=== PATIENT | male | born 1945 | race American Indian/Alaskan Native ===

== ENCOUNTER 2019-03-01 02:09 | Inpatient (IN) | payer MEDICARE, OTHER ==
[2019-03-01] VITALS (12 sets, daily range): BP systolic 116–166; BP diastolic 62–97
[~2019-03-01] VITALS: Ht 180.3 cm; Wt 179.8 kg
[2019-03-01] MEDS ORDERED: normal saline 1000ml 1,000 ML IV ONE ×2 (02:11→09:26)
[2019-03-01] MEDS ORDERED: ipratropium/albuterol 3ml nebule NEB ONE ×2 (02:15→03:15)
[2019-03-01 02:32] LABS: BASOPHILS % (AUTO) 0.1 % (0-1); EOSINOPHILS % (AUTO) 0.3 % (0-6); HEMOGLOBIN 14.2 g/dl (14.0-17.9); LYMPHOCYTES # (AUTO) 0.2 X10'3 (1.1-4.8); LYMPHOCYTES % (AUTO) 2.7 % (21-51); MEAN CORPUSCULAR HEMOGLOBIN 31.9 PG (27.0-31.0); MEAN CORPUSCULAR HGB CONC 32.4 g/dL (33.0-36.5); MEAN CORPUSCULAR VOLUME 98.3 FL (78-98); MEAN PLATELET VOLUME 7.9 FL (7.4-10.4); MONOCYTES # (AUTO) 0.3 X10'3 (0-0.9); MONOCYTES % (AUTO) 3.7 % (2-12); NEUTROPHILS # (AUTO) 7.9 X10'3 (1.8-7.7); NEUTROPHILS % (AUTO) 93.2 % (42-75); RED BLOOD COUNT 4.47 X10'6 (4.70-6.10); RED CELL DISTRIBUTION WIDTH 14.1 % (11.5-14.5); WHITE BLOOD COUNT 8.5 X10'3 (4.5-11.0)
[2019-03-01] MEDS ORDERED: FLO0.4C PO (02:32)
[2019-03-01] MEDS ORDERED: QUET-1 PO (02:32)
[2019-03-01] MEDS ORDERED: FURO-150 PO (02:32)
[2019-03-01] MEDS ORDERED: KETO120S3 TOP (02:32)
[2019-03-01] MEDS ORDERED: VENL-190 PO (02:32)
[2019-03-01] MEDS ORDERED: GLY/85CR TOP (02:32)
[2019-03-01] MEDS ORDERED: ALBU18HF2 INH (02:32)
[2019-03-01] MEDS ORDERED: SYN0.112T PO (02:32)
[2019-03-01] MEDS ORDERED: PRAV20TA4 PO (02:32)
[2019-03-01] MEDS ORDERED: DOCU100C33 PO (02:32)
[2019-03-01] MEDS ORDERED: ACET-2119 PO (02:32)
[2019-03-01] MEDS ORDERED: FAMO20TA8 PO (02:32)
[2019-03-01] MEDS ORDERED: BUDE10.2 INH (02:32)
[2019-03-01] MEDS ORDERED: POTA10TA19 PO (02:32)
[2019-03-01] MEDS ORDERED: ALLO100T PO (02:32)
[2019-03-01] MEDS ORDERED: LOSA25TA96 PO (02:32)
[2019-03-01] MEDS ORDERED: TIOT18CA3 INH (02:32)
[2019-03-01] MEDS ORDERED: ASPI-1265 PO (02:32)
[2019-03-01] MEDS ORDERED: CHOL10008 PO (02:32)
[2019-03-01] MEDS ORDERED: TRAZ-219 PO (02:32)
[2019-03-01 02:36] LABS: PARTIAL THROMBOPLASTIN TIME 27 SECONDS (22-32)
[2019-03-01] MEDS ORDERED: acetaminophen 325mg tablet PO ONE (02:40)
[2019-03-01 02:45] LABS: ALANINE AMINOTRANSFERASE 19 U/L (12-78); ALBUMIN/GLOBULIN RATIO 0.8 (1.1-1.5); ALKALINE PHOSPHATASE 84 IU/L (46-116); ANION GAP -2 (8-16); ASPARTATE AMINO TRANSFERASE 13 U/L (10-37); BILIRUBIN,TOTAL 0.9 MG/DL (0.1-1.0); BLOOD UREA NITROGEN 30 MG/DL (7-18); BUN/CREATININE RATIO 22.2 (5.4-32.0); CALCIUM 8.6 MG/DL (8.5-10.1); CHLORIDE 103 MMOL/L (99-107); CREATININE 1.35 MG/DL (0.60-1.10); GLUCOSE 130 MG/DL (70-104); MAGNESIUM 1.5 MG/DL (1.5-2.4); POTASSIUM 4.2 MMOL/L (3.5-5.1); SODIUM 144 MMOL/L (135-145); TOTAL PROTEIN 6.9 G/DL (6.4-8.2); eGFR 52 ML/MIN
[2019-03-01 02:46] LABS: PLATELET COUNT 99 X10'3 (140-440)
[2019-03-01 02:47] LABS: TOTAL CARBON DIOXIDE 42.6 MMOL/L (24-32)
[2019-03-01 03:12] LABS: CLARITY,URINE TURBID (Clear); COLOR,URINE YELLOW (Yellow); GLUCOSE, URINE NEGATIVE (Neg); KETONES,URINE NEGATIVE (Neg); LEUKOCYTE ESTERASE ,URINE LARGE (Neg); NITRITES, URINE POSITIVE (Neg); OCCULT BLOOD,URINE LARGE (Neg); PH,URINE 8.5 (4.8-8.0); PROTEIN,URINE 100 mg/dl (Neg)
[2019-03-01 03:14] LABS: UA COLLECTION TYPE FOLEY CATH
[2019-03-01 03:17] LABS: WBC,URINE 30-50 /HPF (0-4)
[2019-03-01 03:18] LABS: AMORPHOUS PHOSPHATES 1+; BACTERIA,URINE 3+ /HPF (Neg); MUCUS STRANDS NONE SEEN /LPF (Neg); RBC,URINE 20-50 /HPF (0-2); SQUAMOUS EPITHELIAL CELL,UR FEW /LPF (FEW)
[2019-03-01] MEDS ORDERED: normal saline 1000ML IV soln IVB ONE ×2 (03:20→09:30)
[2019-03-01 03:24] LABS: URINE AMPHETAMINE SCREEN NEGATIVE (Neg); URINE BARBITUATE SCREEN NEGATIVE (Neg); URINE BENZODIAZEPINES SCREEN NEGATIVE (Neg); URINE CANNABINOID SCREEN NEGATIVE (Neg); URINE COCAINE SCREEN NEGATIVE (Neg); URINE METHADONE SCREEN NEGATIVE (Neg); URINE OPIATE SCREEN NEGATIVE (Neg); URINE PHENCYCLIDINE SCREEN NEGATIVE (Neg)
[2019-03-01 03:25] LABS: ABG BASE EXCESS 14.3 mmol/L (-2.0-3.0); ABG HCO3 43.7 mmol/L (22.0-26.0); ABG OXYGEN SATURATION 91.9 % (95-98); ABG PCO2 (T) 76.6 mmHg (35.0-45.0); ABG PH (T) 7.375 (7.350-7.450); ABG PO2 (T) 61.6 mmHg (83-108); ALLEN'S TEST Positive; FCOHb 1.6 % (0.5-1.5); FLOW 5 L/min; FMetHb 0.3 % (0.3-1.12); FO2Hb 90.2 % (94-100); PATIENT TEMPERATURE 37.1; RESPIRATORY RATE (OBSERVED) 16 b/min; TOTAL HEMOGLOBIN 15.3 G/dl (14.0-17.9)
[2019-03-01] MEDS: normal saline 1000ml 1,000 ML IV ONE ×2 (03:25→03:35)
[2019-03-01] MEDS ORDERED: levoFLOXACIN-Levaquin 500mg/D5 100 ML IV ONE (03:25)
[2019-03-01] MEDS ORDERED: LORazepam 2 mg/ml vial IV ONE ×2 (04:15→04:35)
[2019-03-01] MEDS ORDERED: methylPREDNISolone sod succ 125mg/2ml vial IV ONE (04:35)
[2019-03-01] MEDS ORDERED: albuterol 2.5 mg/0.5ml nebule NEB ONE (04:35)
[2019-03-01] MEDS ORDERED: albuterol 2.5 MG/3 ML nebule NEB ONE (05:00)
[2019-03-01 05:56] LABS: ABG BASE EXCESS 11.2 mmol/L (-2.0-3.0); ABG HCO3 41.5 mmol/L (22.0-26.0); ABG OXYGEN SATURATION 93.2 % (95-98); ABG PCO2 (T) 90.9 mmHg (35.0-45.0); ABG PH (T) 7.285 (7.350-7.450); ABG PO2 (T) 78.1 mmHg (83-108); ALLEN'S TEST Positive; FCOHb 1.4 % (0.5-1.5); FMetHb 0.3 % (0.3-1.12); FO2Hb 91.6 % (94-100); MINUTE VOLUME 16 L/min; PATIENT TEMPERATURE 38.5; RESPIRATORY RATE (OBSERVED) 31 b/min; TOTAL HEMOGLOBIN 14.5 G/dl (14.0-17.9)
[2019-03-01] MEDS ORDERED: aspirin 81mg tab.chew PO ONE (06:10)
[2019-03-01] MEDS ORDERED: aspirin 300mg supp.rect RC ONE (06:50)
[2019-03-01] MEDS ORDERED: enoxaparin 100mg/ml syringe SUBCUT ONE (06:50)
[2019-03-01] MEDS ORDERED: metoclopramide 5 mg/ml inj IV ONE (06:50)
[2019-03-01 07:16] LABS: ABG BASE EXCESS 13.7 mmol/L (-2.0-3.0); ABG HCO3 45.2 mmol/L (22.0-26.0); ABG OXYGEN SATURATION 94.6 % (95-98); ABG PCO2 (T) 96.5 mmHg (35.0-45.0); ABG PH (T) 7.288 (7.350-7.450); ALLEN'S TEST Positive; FCOHb 1.3 % (0.5-1.5); FMetHb 0.3 % (0.3-1.12); FO2Hb 93.1 % (94-100); TOTAL HEMOGLOBIN 14.4 G/dl (14.0-17.9)
--- NOTE | 2019-03-01 07:19 | NUR ---
PATIENT RECEIVED ON BED,ON BIPAP WITH RATE OF 26 FIO2 45%.PATIENT ASLEEP AT THIS TIME.
--- NOTE | 2019-03-01 08:24 | NUR ---
STILL AWAITING ADMITTING MD TO ADMIT PATIENT.
[2019-03-01] MEDS ORDERED: succinylcholine 20mg/ml inj IV ONE (08:40)
[2019-03-01] MEDS ORDERED: MIDAZolam 5mg/ml 2ml vial IV ONE ×2 (08:40→09:05)
[2019-03-01] MEDS ORDERED: etomidate 2mg/ml inj. IV ONE (08:40)
--- NOTE | 2019-03-01 08:48 | NUR ---
0848 DR HERNÁNDEZ AT BEDSIDE WITH RT AND BEDSIDE NURSE TO INTUBATE PATIENT 0851- INTUBATION STARTED, 40MG ETOMIDATE GIVEN, 120MG SUCC. GIVEN. 0852- 8CM ET PLACED, POSITIVE COLOR CHANGE, 24 AT LIP. BILAT BREATH SOUNDS CONFIRMED. 0853- POST INTUBATION EXRAY ORDERED. 0857-2MG VERSCED IV PUSH GIVEN , 1 LITER NORMAL BOLUS ORDERED AND STARTED 0900- DR HERNÁNDEZ AT BEDSIDE VERIFYING PLACEMENT. PULLING ET TUBE TO 23CM AT TEETH PER MD 09- XRAY AT BEDSIDE, MOVING ET TO 21CM TO TEETH PER MD, X RAY TAKEN AGAIN TO VERIFY PLACEMENT. 0906- 8MG VERSCED IVP ORDERED BY DR HERNÁNDEZ 0909- 8MG VERSCED IVP GIVEN 13- OG TUBE PLACED AND VERIFIED 15- DR HERNÁNDEZ WANTED BOLUS STOPPED AND TO CONTINUE NORMAL SALINE AT 250CC/HR DUE TO HAVING A GOOD BP 115/77.
[2019-03-01] MEDS ORDERED: midazolam 100mg in NS 100ml 100 ML IV ONE (09:00)
--- NOTE | 2019-03-01 09:03 | NUR ---
RADIOLOGY AT BEDSIDE S/P INTUBATION.
--- NOTE | 2019-03-01 09:04 | NUR ---
GIVING BOLUS 1LNS PER DR. HRENÁNDEZ.
--- NOTE | 2019-03-01 09:25 | NUR ---
AWAITING FOR VERSED DRIP FROM THE PHARMACY,PER FRANCISCO JAVIER THEY ARE STILL MAKING IT.
--- NOTE | 2019-03-01 09:25 | NUR ---
per dr. segovia,ferry engineer will place a cntral line upon transfer to icu.
--- NOTE | 2019-03-01 09:34 | NUR ---
FI02 45% SATING 93%,tIDAL VOLUME 500 RATE 23 PEEP 5.
--- NOTE | 2019-03-01 09:37 | NUR ---
NON BEHAVIORAL RESTRAINT APPLIED TO BUE.
[2019-03-01] MEDS ORDERED: midazolam 2 mg/2 ml injection IV ONE (09:50)
[2019-03-01] MEDS ORDERED: acetaminophen 325mg tablet PO PRN ×2 (09:50)
[2019-03-01] MEDS ORDERED: potassium Cl 20 mEq SR tablet PO PRN ×2 (09:50)
[2019-03-01] MEDS ORDERED: potassium CL 10mEq/100ml bag 100 ML IV PRN ×2 (09:50)
[2019-03-01] MEDS ORDERED: ipratropium/albuterol 3ml nebule NEB PRN (09:50)
[2019-03-01] MEDS ORDERED: fentaNYL/PF 50MCG/1 ML 2ML syringe IV PRN (09:50)
[2019-03-01] MEDS ORDERED: potassium Cl 20mEq/100mL bag 100 ML IV PRN ×2 (09:50)
--- NOTE | 2019-03-01 10:04 | NUR ---
Assumed care of patient. Pt is lying in bed, sedated with versed gtt 1mg/hr to left AC. Pt is intubated with ventilator set at 45% FiO2, PEEP 5, TV 500, Rate 23. Vital signs HR 85, SpO2 92%, RR 29, Temp 99.3, BP 108/57.
--- NOTE | 2019-03-01 10:05 | NUR ---
awaiting icu bed.
[2019-03-01 10:15] LABS: ABG BASE EXCESS 8.3 mmol/L (-2.0-3.0); ABG HCO3 32.5 mmol/L (22.0-26.0); ABG OXYGEN SATURATION 92.3 % (95-98); ABG PCO2 (T) 43.2 mmHg (35.0-45.0); ABG PH (T) 7.494 (7.350-7.450); ABG PO2 (T) 54.2 mmHg (83-108); FCOHb 1.3 % (0.5-1.5); FMetHb 0.2 % (0.3-1.12); FO2Hb 90.9 % (94-100); MINUTE VOLUME 13 L/min; PEEP 5 cm H2O; RESPIRATORY RATE 23 b/min; RESPIRATORY RATE (OBSERVED) 23 b/min; TIDAL VOLUME 500 mL
--- NOTE | 2019-03-01 10:41 | NUR ---
Sister Freya Paolo (cell: [phone], ) at bedside at this time. Update given, all questions and concerns addressed, patient continues to rest, VSS on vent AC Mode.
[2019-03-01] MEDS: normal saline 1000ml 1,000 ML IV SCH ×2 (10:54→23:51)
[2019-03-01] MEDS: midazolam 100mg in NS 100ml 100 ML IV PRN (11:00)
[2019-03-01] MEDS: ipratropium/albuterol 3ml nebule NEB SCH ×4 (11:00→23:10)
--- NOTE | 2019-03-01 11:30 | NUR ---
Patient in room ICU 2042. I have received report from OLIVIA Cabral and had the opportunity to ask questions and assume patient care.
[2019-03-01] MEDS: FENTANYL-0.9 % NACL/PF 100 ML IV PRN ×2 (12:05→23:51)
[2019-03-01 12:26] LABS: ABG BASE EXCESS 11.1 mmol/L (-2.0-3.0); ABG OXYGEN SATURATION 92.8 % (95-98); ABG PCO2 (T) 54.3 mmHg (35.0-45.0); ABG PH (T) 7.454 (7.350-7.450); ABG PO2 (T) 59.1 mmHg (83-108); ALLEN'S TEST Positive; FCOHb 1.1 % (0.5-1.5); FMetHb 0.2 % (0.3-1.12); FO2Hb 91.6 % (94-100); MINUTE VOLUME 11 L/min; PATIENT TEMPERATURE 37.6; PEEP 5 cm H2O; RESPIRATORY RATE 20 b/min; RESPIRATORY RATE (OBSERVED) 26 b/min; TIDAL VOLUME 400 mL; TOTAL HEMOGLOBIN 14.8 G/dl (14.0-17.9)
--- NOTE | 2019-03-01 12:57 | NUR ---
pt is intubated and sedated, anxious when awake, medicated pt per MD order. Dr. Bartlett arrived on unit and assessed pt, updated on pt condition. 2 RN skin checks completed on admission, no skin issues noted.
[2019-03-01] MEDS ORDERED: MESSAGE TO PHARMACY PO ONE (13:45)
[2019-03-01] MEDS ORDERED: glucagon, human recombinant 1mg kit SUBCUT PRN (13:45)
[2019-03-01] MEDS ORDERED: dextrose 50%-water 50ml dispensing syringe IV PRN ×2 (13:45)
[2019-03-01] MEDS ORDERED: dextrose ORAL solution 15 GM/59 ML bottle PO PRN ×2 (13:45)
--- NOTE | 2019-03-01 14:13 | NUR ---
Initial: Pt intubated admit s/p fall w/ respiratory failure, UTI, and metabolic encephalopathy per MD note. Hx DM but no A1C hx yet. Will monitor for nutrition support needs if prolonged intubation. Rec: 1. monitor for nutrition support needs if prolonged intubation 2. IF TF; prealbumin Q /, daily wts 3. IF TF; daily wts Addendum: 03/01/19 at [address] Amended: Links added.
[2019-03-01] MEDS: methylPREDNISolone sod succ 125mg/2ml vial IV SCH ×2 (14:14→20:23)
--- NOTE | 2019-03-01 17:00 | NUR ---
positive blood cultures results notified Dr. Bartlett, tmax 38.9F, treated with tylenol, packed pt with ice, temp improving. Updated family on plan of care.
--- NOTE | 2019-03-01 18:21 | NUR ---
Problems reprioritized. Patient report given, questions answered & plan of care reviewed with OLIVIA Dooley.
--- NOTE | 2019-03-01 18:30 | NUR ---
Patient in room ICU 2042. I have received report from Fanta BAKER and had the opportunity to ask questions and assume patient care.
[2019-03-01] MEDS ORDERED: etomidate 2mg/ml inj. ONE (20:00)
[2019-03-01] MEDS ORDERED: sod chloride 0.9% 10ml flush syringe IV ONE (20:00)
[2019-03-01] MEDS ORDERED: rocuronium 10mg/ml inj IV ONE (20:00)
[2019-03-01] MEDS: docusate sod 100mg capsule PO SCH (20:00)
[2019-03-01] MEDS: famotidine/PF 10 mg/ml inj IV SCH (20:22)
[2019-03-01] MEDS: heparin, porcine 5000 units/ml vial SQ SCH (20:23)
[2019-03-01] MEDS: sennosides/docusate sodium tablet PO SCH (20:23)
[2019-03-01] MEDS: insulin Lispro (HumaLOG) vial - multi-dose SQ SCH (20:29)
[2019-03-01] MEDS: insulin glargine (Lantus) pen - multi-dose SQ SCH (20:30)
--- NOTE | 2019-03-01 21:50 | NUR ---
Pt not following commands but withdraws to painful stimuli. Titrating sedation for patient comfort.
[2019-03-02] VITALS (24 sets, daily range): BP systolic 123–176; BP diastolic 65–98
[2019-03-02] MEDS: methylPREDNISolone sod succ 125mg/2ml vial IV SCH ×4 (02:02→20:06)
[2019-03-02] MEDS: midazolam 100mg in NS 100ml 100 ML IV PRN ×2 (02:03→17:07)
[2019-03-02] MEDS: insulin Lispro (HumaLOG) vial - multi-dose SQ SCH ×2 (02:07→07:21)
[2019-03-02] MEDS: ipratropium/albuterol 3ml nebule NEB SCH ×3 (03:00→11:40)
[2019-03-02 03:21] LABS: ABG BASE EXCESS 7.3 mmol/L (-2.0-3.0); ABG HCO3 33.7 mmol/L (22.0-26.0); ABG OXYGEN SATURATION 91.1 % (95-98); ABG PCO2 (T) 52.5 mmHg (35.0-45.0); ABG PH (T) 7.422 (7.350-7.450); ABG PO2 (T) 58.8 mmHg (83-108); ALLEN'S TEST Positive; FCOHb 0.4 % (0.5-1.5); FMetHb 0.2 % (0.3-1.12); FO2Hb 90.6 % (94-100); MINUTE VOLUME 9 L/min; PATIENT TEMPERATURE 36.5; PEEP 5 cm H2O; RESPIRATORY RATE 20 b/min; RESPIRATORY RATE (OBSERVED) 22 b/min; TIDAL VOLUME 400 mL
--- NOTE | 2019-03-02 04:29 | NUR ---
Pt does not have central line Addendum: 03/02/19 at 0429 by Soumya Chamberlain RN Amended: Links added.
--- NOTE | 2019-03-02 05:59 | NUR ---
Pt hypertensive, Steven notified. Orders received.
[2019-03-02] MEDS ORDERED: hydrALAZINE 20mg/ml inj. IV ONE (06:05)
--- NOTE | 2019-03-02 06:32 | NUR ---
Problems reprioritized. Patient report given, questions answered & plan of care reviewed with Melyssa BAKER.
[2019-03-02 06:34] LABS: BASOPHILS % (AUTO) 0.2 % (0-1); EOSINOPHILS % (AUTO) 0 % (0-6); HEMATOCRIT 44.1 % (42.0-52.0); HEMOGLOBIN 14.2 g/dl (14.0-17.9); LYMPHOCYTES # (AUTO) 0.2 X10'3 (1.1-4.8); LYMPHOCYTES % (AUTO) 1.6 % (21-51); MEAN CORPUSCULAR HEMOGLOBIN 31.5 PG (27.0-31.0); MEAN CORPUSCULAR HGB CONC 32.1 g/dL (33.0-36.5); MEAN PLATELET VOLUME 8.5 FL (7.4-10.4); MONOCYTES # (AUTO) 0.5 X10'3 (0-0.9); NEUTROPHILS # (AUTO) 14.2 X10'3 (1.8-7.7); NEUTROPHILS % (AUTO) 95.2 % (42-75); PLATELET COUNT 84 X10'3 (140-440); RED CELL DISTRIBUTION WIDTH 14.4 % (11.5-14.5); WHITE BLOOD COUNT 14.9 X10'3 (4.5-11.0)
[2019-03-02 06:46] LABS: ALANINE AMINOTRANSFERASE 24 U/L (12-78); ALBUMIN 2.5 G/DL (3.4-5.0); ALBUMIN/GLOBULIN RATIO 0.6 (1.1-1.5); ALKALINE PHOSPHATASE 59 IU/L (46-116); ANION GAP 5 (8-16); ASPARTATE AMINO TRANSFERASE 23 U/L (10-37); BILIRUBIN,TOTAL 0.6 MG/DL (0.1-1.0); BLOOD UREA NITROGEN 37 MG/DL (7-18); BUN/CREATININE RATIO 17.1 (5.4-32.0); CALCIUM 8.2 MG/DL (8.5-10.1); CHLORIDE 104 MMOL/L (99-107); CREATININE 2.16 MG/DL (0.60-1.10); GLUCOSE 189 MG/DL (70-104); MAGNESIUM 1.8 MG/DL (1.5-2.4); PHOSPHORUS 2.6 MG/DL (2.3-4.5); POTASSIUM 4.3 MMOL/L (3.5-5.1); SODIUM 144 MMOL/L (135-145); TOTAL CARBON DIOXIDE 35.3 MMOL/L (24-32); TOTAL PROTEIN 6.5 G/DL (6.4-8.2); eGFR 30 ML/MIN
--- NOTE | 2019-03-02 06:59 | NUR ---
Patient in room ICU 2042. I have received report from OLIVIA Dooley and had the opportunity to ask questions and assume patient care.
[2019-03-02] MEDS: heparin, porcine 5000 units/ml vial SQ SCH ×2 (07:15→20:00)
[2019-03-02] MEDS: famotidine/PF 10 mg/ml inj IV SCH ×2 (07:15→20:06)
[2019-03-02] MEDS: docusate sod 100mg capsule PO SCH ×2 (07:15→20:00)
[2019-03-02 07:16] LABS: PLATELET ESTIMATE DECREASED; TOTAL CELLS COUNTED 100
[2019-03-02 07:17] LABS: GIANT PLATELET FEW
[2019-03-02] MEDS ORDERED: levoFLOXACIN-Levaquin 750MG/D5 150 ML IV SCH ×2 (08:00)
[2019-03-02] MEDS ORDERED: ipratropium/albuterol 3ml nebule IH PRN (10:50)
[2019-03-02 11:35] LABS: CLARITY,URINE CLOUDY (Clear); COLOR,URINE YELLOW (Yellow); GLUCOSE, URINE NEGATIVE (Neg); KETONES,URINE NEGATIVE (Neg); LEUKOCYTE ESTERASE ,URINE MODERATE (Neg); NITRITES, URINE NEGATIVE (Neg); OCCULT BLOOD,URINE LARGE (Neg); PROTEIN,URINE 30 mg/dl (Neg)
[2019-03-02 11:39] LABS: UA COLLECTION TYPE NON-SPECIFIED
[2019-03-02] MEDS: normal saline 1000ml 1,000 ML IV SCH ×2 (11:45→18:40)
[2019-03-02 11:51] LABS: BACTERIA,URINE 2+ /HPF (Neg); RBC,URINE 50-100 /HPF (0-2); WBC,URINE 50-100 /HPF (0-4)
[2019-03-02 11:52] LABS: MUCUS STRANDS FEW /LPF (Neg); SQUAMOUS EPITHELIAL CELL,UR FEW /LPF (FEW); WBC CLUMPS,URINE FEW /HPF (NEGATIVE)
--- NOTE | 2019-03-02 11:55 | NUR ---
Tube feeding consult: Patient is intubated and sedated. OK by MD to begin tube feedings today. Pt intubated admit s/p fall w/ respiratory failure, UTI, and metabolic encephalopathy per MD note. Will continue to follow. Rec: 1. Begin continuous tube feeding with Vital high protein per OG tube, recommend to start at 20 ml/hr and advance by 20 ml q 8 hours to goal rate of 90 ml/hr to provide 2160 ml total volume, 2160 cals, 189 g protein, and 1844 ml water. 2. Additional water flush 200 ml q 4 3. Prealbumin q Thursday and 4. daily weights Addendum: 03/02/19 at [address] Amended: Links added.
[2019-03-02] MEDS: FENTANYL-0.9 % NACL/PF 100 ML IV PRN ×2 (13:19→23:19)
[2019-03-02 13:21] LABS: UA EOSINOPHILS FEW EOS /HPF
[2019-03-02] MEDS: mineral oil/petrolatum ophthal oint EACHEYE SCH ×2 (14:20→20:07)
[2019-03-02] MEDS ORDERED: insulin regular, human vial - multi-dose SQ SCH (14:40)
[2019-03-02] MEDS: albuterol 2.5 MG/3 ML nebule NEB SCH ×2 (15:00→19:07)
[2019-03-02] MEDS: insulin regular, human vial - multi-dose SQ SCH ×2 (15:45→21:29)
--- NOTE | 2019-03-02 18:28 | NUR ---
Problems reprioritized. Patient report given, questions answered & plan of care reviewed with OLIVIA Hicks.
--- NOTE | 2019-03-02 18:30 | NUR ---
assumed care from miss carlos BAKER no questions or concerns after assuming care
[2019-03-02] MEDS: budesonide 0.5mg/2ml UD nebule IH SCH (19:07)
[2019-03-02] MEDS: quetiapine 100mg tablet PO SCH (21:00)
[2019-03-02] MEDS: traZODone 50mg tablet PO SCH (21:00)
[2019-03-02] MEDS: sennosides/docusate sodium tablet PO SCH (21:25)
[2019-03-02] MEDS: insulin glargine (Lantus) pen - multi-dose SQ SCH (21:33)
[2019-03-03] VITALS (24 sets, daily range): BP systolic 129–163; BP diastolic 65–93
[2019-03-03] MEDS: normal saline 1000ml 1,000 ML IV SCH ×2 (01:24→07:24)
[2019-03-03] MEDS ORDERED: hydrALAZINE 20mg/ml inj. IV ONE (01:35)
--- NOTE | 2019-03-03 01:52 | NUR ---
patients b/p started to elevate was able to get telephone order for hydralazine 10mg once fro Kris Kiran, patient has not been "bucking the vent." rr even un labored no observable s/s of acute stress at this time
[2019-03-03] MEDS: methylPREDNISolone sod succ 125mg/2ml vial IV SCH ×4 (02:06→20:11)
[2019-03-03] MEDS: mineral oil/petrolatum ophthal oint EACHEYE SCH ×4 (02:06→20:12)
[2019-03-03] MEDS: insulin regular, human vial - multi-dose SQ SCH ×4 (02:18→20:09)
[2019-03-03] MEDS: albuterol 2.5 MG/3 ML nebule NEB SCH ×3 (02:37→19:14)
[2019-03-03 03:46] LABS: ABG BASE EXCESS 4.4 mmol/L (-2.0-3.0); ABG HCO3 28.1 mmol/L (22.0-26.0); ABG OXYGEN SATURATION 95.3 % (95-98); ABG PCO2 (T) 38.5 mmHg (35.0-45.0); ABG PH (T) 7.481 (7.350-7.450); ABG PO2 (T) 71.7 mmHg (83-108); ALLEN'S TEST Positive; FCOHb 0.4 % (0.5-1.5); FMetHb 0.1 % (0.3-1.12); FO2Hb 94.8 % (94-100); PATIENT TEMPERATURE 36.8; PEEP 5 cm H2O; RESPIRATORY RATE 20 b/min; RESPIRATORY RATE (OBSERVED) 26 b/min; TIDAL VOLUME 400 mL; TOTAL HEMOGLOBIN 14.3 G/dl (14.0-17.9)
[2019-03-03] MEDS: midazolam 100mg in NS 100ml 100 ML IV PRN ×3 (04:15→18:37)
[2019-03-03 04:26] LABS: BASOPHILS % (AUTO) 0.1 % (0-1); EOSINOPHILS % (AUTO) 0 % (0-6); HEMATOCRIT 40.9 % (42.0-52.0); HEMOGLOBIN 13.3 g/dl (14.0-17.9); LYMPHOCYTES # (AUTO) 0.4 X10'3 (1.1-4.8); LYMPHOCYTES % (AUTO) 2.6 % (21-51); MEAN CORPUSCULAR HEMOGLOBIN 31.6 PG (27.0-31.0); MEAN CORPUSCULAR HGB CONC 32.5 g/dL (33.0-36.5); MEAN CORPUSCULAR VOLUME 97.1 FL (78-98); MEAN PLATELET VOLUME 9.5 FL (7.4-10.4); MONOCYTES # (AUTO) 0.6 X10'3 (0-0.9); MONOCYTES % (AUTO) 4.5 % (2-12); NEUTROPHILS # (AUTO) 12.4 X10'3 (1.8-7.7); NEUTROPHILS % (AUTO) 92.8 % (42-75); PLATELET COUNT 75 X10'3 (140-440); RED BLOOD COUNT 4.22 X10'6 (4.70-6.10); RED CELL DISTRIBUTION WIDTH 14.3 % (11.5-14.5); WHITE BLOOD COUNT 13.3 X10'3 (4.5-11.0)
[2019-03-03 04:36] LABS: ALANINE AMINOTRANSFERASE 19 U/L (12-78); ALBUMIN 2.2 G/DL (3.4-5.0); ALBUMIN/GLOBULIN RATIO 0.6 (1.1-1.5); ALKALINE PHOSPHATASE 56 IU/L (46-116); ANION GAP 5 (8-16); ASPARTATE AMINO TRANSFERASE 15 U/L (10-37); BILIRUBIN,TOTAL 0.4 MG/DL (0.1-1.0); BLOOD UREA NITROGEN 46 MG/DL (7-18); CALCIUM 7.9 MG/DL (8.5-10.1); CHLORIDE 105 MMOL/L (99-107); CREATININE 1.84 MG/DL (0.60-1.10); GLUCOSE 203 MG/DL (70-104); MAGNESIUM 1.8 MG/DL (1.5-2.4); PHOSPHORUS 1.9 MG/DL (2.3-4.5); POTASSIUM 3.8 MMOL/L (3.5-5.1); PREALBUMIN 11.1 MG/DL (19-36); SODIUM 141 MMOL/L (135-145); TOTAL CARBON DIOXIDE 31.5 MMOL/L (24-32); TOTAL PROTEIN 6.1 G/DL (6.4-8.2); eGFR 36 ML/MIN
--- NOTE | 2019-03-03 06:16 | NUR ---
SBAR FLACO HUTCHISON RN NO QUESTIONS OR CONCERNS FROM DAY SHIFT RN AFTER ASSUMING CARE
--- NOTE | 2019-03-03 06:44 | NUR ---
Patient in room ICU 2042. I have received report from OLIVIA Hicks and had the opportunity to ask questions and assume patient care.
[2019-03-03] MEDS: famotidine/PF 10 mg/ml inj IV SCH ×2 (07:21→20:10)
[2019-03-03] MEDS: tamsulosin 0.4mg capsule PO SCH (07:22)
[2019-03-03] MEDS: atorvastatin 10mg tablet PO SCH (07:22)
[2019-03-03] MEDS: vitamin D (cholecalciferol) 1,000 unit tablet PO SCH (07:22)
[2019-03-03] MEDS: aspirin 81mg tab.chew PO SCH (07:22)
[2019-03-03] MEDS: levoTHYROXINE 112mcg tablet PO SCH (07:22)
[2019-03-03] MEDS: venlafaxine XR 75mg capsule (Q24H) PO SCH (07:23)
[2019-03-03] MEDS: allopurinol 100mg tablet PO SCH (07:23)
[2019-03-03] MEDS: heparin, porcine 5000 units/ml vial SQ SCH ×2 (08:00→19:50)
[2019-03-03] MEDS ORDERED: docusate sod 100mg capsule PO SCH (08:00)
[2019-03-03] MEDS ORDERED: [UNRECOGNIZED DRUG - OTHER] TOP SCH (08:00)
[2019-03-03] MEDS ORDERED: non-formulary drug (Tiotropium Bromide (Spiriva) 2 PUFFS) INH SCH (08:00)
[2019-03-03] MEDS ORDERED: PETROLAT WHT TOP SCH (08:00)
[2019-03-03] MEDS ORDERED: GLY TOP SCH (08:00)
[2019-03-03] MEDS ORDERED: DIMETH TOP SCH (08:00)
[2019-03-03] MEDS ORDERED: WATER TOP SCH (08:00)
[2019-03-03] MEDS: budesonide 0.5mg/2ml UD nebule IH SCH ×2 (09:10→19:14)
[2019-03-03] MEDS: FENTANYL-0.9 % NACL/PF 100 ML IV PRN ×2 (10:28→22:20)
[2019-03-03] MEDS: aztreonam inj. 1,000 MG in normal saline 100ml IV soln 100 ML IV SCH ×2 (10:42→15:21)
--- NOTE | 2019-03-03 12:05 | NUR ---
WOUND INFECTION EDUCATION PROVIDED BY WOUND CARE 1. Patient instructed to call their primary doctor, or go the ED immediately if any of the following symptoms occur: * Increased pain in wound * Increase in drainage from the wound * Redness in the skin surrounding the wound * Warmth in the skin surrounding the wound * Bleeding from the wound * Temperature of 101 or greater 2. If any of these occur while in the hospital tell a nurse immediately. Addendum: 03/03/19 at 1205 by Magnolia Bautista RN Amended: Links added.
--- NOTE | 2019-03-03 18:27 | NUR ---
assumed care no questions after sbar from Melyssa RN after shift change
--- NOTE | 2019-03-03 19:00 | NUR ---
patient in bed eyes closed rr even un labored no observable s/s of acute stress at this time
--- NOTE | 2019-03-03 19:52 | NUR ---
july singing teacher aware of heparin non admin due to plt count at 75
[2019-03-03] MEDS: insulin glargine (Lantus) pen - multi-dose SQ SCH (20:55)
[2019-03-03] MEDS: sennosides/docusate sodium tablet PO SCH (20:58)
[2019-03-03] MEDS: quetiapine 100mg tablet PO SCH (20:58)
[2019-03-03] MEDS: traZODone 50mg tablet PO SCH (21:00)
--- NOTE | 2019-03-03 21:56 | NUR ---
patient in bed rr even un labored no observable s/s of acute stress at this time
[2019-03-03] MEDS: aztreonam inj. 2,000 MG in dextrose 5%-water 100 ML IV SCH (23:59)
[2019-03-04] VITALS (24 sets, daily range): BP systolic 126–151; BP diastolic 67–84
[2019-03-04] MEDS: albuterol 2.5 MG/3 ML nebule NEB SCH ×4 (01:00→20:33)
--- NOTE | 2019-03-04 01:50 | NUR ---
patient in bed eyes closed rr even un labored no observable s/s of acute stress at this time
[2019-03-04] MEDS: methylPREDNISolone sod succ 125mg/2ml vial IV SCH ×4 (01:59→19:56)
[2019-03-04] MEDS: mineral oil/petrolatum ophthal oint EACHEYE SCH ×4 (02:00→20:02)
[2019-03-04] MEDS: insulin regular, human vial - multi-dose SQ SCH ×4 (02:09→20:09)
--- NOTE | 2019-03-04 03:43 | NUR ---
I sent Shekhar agricultural chemicals inspector to get more vital hp for the patient Shekhar returned stateing there was no vital hp to milk pickup driver, called July PICK PULLING MACHINE TENDER. was able to get a telephone order for vital af, until the a.m. when nutrition/dietary will be in to stock bottles of vital hp
[2019-03-04 03:46] LABS: ABG BASE EXCESS 1.8 mmol/L (-2.0-3.0); ABG HCO3 26.7 mmol/L (22.0-26.0); ABG OXYGEN SATURATION 94.5 % (95-98); ABG PCO2 (T) 42.3 mmHg (35.0-45.0); ABG PH (T) 7.417 (7.350-7.450); ABG PO2 (T) 69.4 mmHg (83-108); FCOHb 0.3 % (0.5-1.5); FMetHb 0.1 % (0.3-1.12); FO2Hb 94.1 % (94-100); MINUTE VOLUME 12 L/min; PATIENT TEMPERATURE 36.8; PEEP 5 cm H2O; RESPIRATORY RATE 20 b/min; RESPIRATORY RATE (OBSERVED) 27 b/min; TIDAL VOLUME 400 mL; TOTAL HEMOGLOBIN 13.8 G/dl (14.0-17.9)
[2019-03-04] MEDS: normal saline 1000ml 1,000 ML IV SCH ×2 (04:20→16:44)
--- NOTE | 2019-03-04 05:15 | NUR ---
RT present checking vent, patient eyes closed rr even un labored no observable s/s of acute stress at this time
[2019-03-04 05:35] LABS: BASOPHILS % (AUTO) 0.1 % (0-1); EOSINOPHILS % (AUTO) 0 % (0-6); HEMATOCRIT 39.4 % (42.0-52.0); LYMPHOCYTES # (AUTO) 0.3 X10'3 (1.1-4.8); LYMPHOCYTES % (AUTO) 2.4 % (21-51); MEAN CORPUSCULAR HEMOGLOBIN 31.5 PG (27.0-31.0); MEAN CORPUSCULAR VOLUME 95.5 FL (78-98); MEAN PLATELET VOLUME 9.2 FL (7.4-10.4); MONOCYTES # (AUTO) 0.6 X10'3 (0-0.9); MONOCYTES % (AUTO) 5.1 % (2-12); NEUTROPHILS # (AUTO) 11.4 X10'3 (1.8-7.7); NEUTROPHILS % (AUTO) 92.4 % (42-75); PLATELET COUNT 82 X10'3 (140-440); RED BLOOD COUNT 4.13 X10'6 (4.70-6.10); RED CELL DISTRIBUTION WIDTH 14.1 % (11.5-14.5); WHITE BLOOD COUNT 12.4 X10'3 (4.5-11.0)
[2019-03-04 05:57] LABS: ALANINE AMINOTRANSFERASE 19 U/L (12-78); ALBUMIN/GLOBULIN RATIO 0.5 (1.1-1.5); ALKALINE PHOSPHATASE 53 IU/L (46-116); ANION GAP 7 (8-16); ASPARTATE AMINO TRANSFERASE 12 U/L (10-37); BILIRUBIN,TOTAL 0.3 MG/DL (0.1-1.0); BLOOD UREA NITROGEN 54 MG/DL (7-18); BUN/CREATININE RATIO 32.1 (5.4-32.0); CALCIUM 7.7 MG/DL (8.5-10.1); CHLORIDE 105 MMOL/L (99-107); CREATININE 1.68 MG/DL (0.60-1.10); GLUCOSE 187 MG/DL (70-104); PHOSPHORUS 2.4 MG/DL (2.3-4.5); POTASSIUM 3.8 MMOL/L (3.5-5.1); SODIUM 141 MMOL/L (135-145); TOTAL CARBON DIOXIDE 29.2 MMOL/L (24-32); eGFR 40 ML/MIN
[2019-03-04] MEDS: midazolam 100mg in NS 100ml 100 ML IV PRN ×2 (06:29→20:28)
--- NOTE | 2019-03-04 06:30 | NUR ---
sbar to ricarda BAKER no questions or concerns upon shift change sbar
[2019-03-04] MEDS ORDERED: levoFLOXACIN-Levaquin 750MG/D5 150 ML IV SCH (08:00)
[2019-03-04] MEDS: tamsulosin 0.4mg capsule PO SCH (08:00)
[2019-03-04] MEDS: venlafaxine XR 75mg capsule (Q24H) PO SCH (08:00)
[2019-03-04] MEDS: budesonide 0.5mg/2ml UD nebule IH SCH ×2 (08:23→20:33)
[2019-03-04] MEDS: allopurinol 100mg tablet PO SCH (08:52)
[2019-03-04] MEDS: docusate sodium 100mg/10ml UD cup PO SCH (08:52)
[2019-03-04] MEDS: aztreonam inj. 2,000 MG in dextrose 5%-water 100 ML IV SCH ×3 (08:52→23:58)
[2019-03-04] MEDS: levoTHYROXINE 112mcg tablet PO SCH (08:52)
[2019-03-04] MEDS: famotidine/PF 10 mg/ml inj IV SCH (08:53)
[2019-03-04] MEDS: vitamin D (cholecalciferol) 1,000 unit tablet PO SCH (08:53)
[2019-03-04] MEDS: heparin, porcine 5000 units/ml vial SQ SCH ×2 (08:53→20:00)
[2019-03-04] MEDS: aspirin 81mg tab.chew PO SCH (08:54)
[2019-03-04] MEDS: atorvastatin 10mg tablet PO SCH (08:55)
[2019-03-04] MEDS ORDERED: ketoconazole (Nizoral) shampoo TP PRN (09:00)
[2019-03-04] MEDS: FENTANYL-0.9 % NACL/PF 100 ML IV PRN (11:06)
--- NOTE | 2019-03-04 11:30 | NUR ---
wound care provided per wound care instructions
--- NOTE | 2019-03-04 12:46 | NUR ---
Reassessment: patient intubated and sedated. Tolerating tube feedings well, per RN at goal rate of 90 ml/hr with vital high protein. GRKanu WNL. No BM since admission, is receiving Colace daily and senna HS. Pt intubated and sedated, admit s/p fall w/ respiratory failure, UTI, and metabolic encephalopathy per MD note. Will continue to follow. Rec: 1. continuous tube feeding with Vital high protein per OG tube, goal rate of 90 ml/hr to provide 2160 ml total volume, 2160 cals, 189 g protein, and 1844 ml water. 2. Additional water flush 200 ml q 4 3. Prealbumin q Thursday and 4. daily weights Addendum: 03/04/19 at [address] Amended: Links added.
--- NOTE | 2019-03-04 18:33 | NUR ---
Recieved "SBAR"report from Tony BAKER no questions or concerns after assuming care
--- NOTE | 2019-03-04 19:30 | NUR ---
patient in bed eyes closed rr even un labored no observable s/s of acute stress at this time
[2019-03-04] MEDS: famotidine 20mg tablet PO SCH (19:56)
[2019-03-04] MEDS: lactobacillus rhamnosus 10,000 MMU CELLS/CAPSULE PO SCH (19:56)
[2019-03-04] MEDS: insulin glargine (Lantus) pen - multi-dose SQ SCH (20:57)
[2019-03-04] MEDS: traZODone 50mg tablet PO SCH (21:00)
[2019-03-04] MEDS: quetiapine 100mg tablet PO SCH (21:49)
[2019-03-04] MEDS: sennosides/docusate sodium tablet PO SCH (21:49)
--- NOTE | 2019-03-04 23:00 | NUR ---
patient in bed eyes closed rr even un labored no observable s/s of acute stress at this time will continue to monitor
[2019-03-05] VITALS (24 sets, daily range): BP systolic 134–155; BP diastolic 68–80
[2019-03-05] MEDS ORDERED: vancomycin/NS 1 GM ADD-VANTAGE 250 ML IV ONE (01:35)
[2019-03-05] MEDS: insulin regular, human vial - multi-dose SQ SCH ×4 (02:06→23:17)
[2019-03-05] MEDS: methylPREDNISolone sod succ 125mg/2ml vial IV SCH ×4 (02:10→21:34)
[2019-03-05] MEDS: mineral oil/petrolatum ophthal oint EACHEYE SCH ×4 (02:11→21:34)
[2019-03-05] MEDS: albuterol 2.5 MG/3 ML nebule NEB SCH ×4 (02:42→21:18)
--- NOTE | 2019-03-05 03:11 | NUR ---
patient in bed eyes closed rr even un labored RT getting a.m. ABG, rr even un labored no observable s/s of acute stress at this time will continue to monitor
[2019-03-05 03:35] LABS: ABG BASE EXCESS 5.6 mmol/L (-2.0-3.0); ABG HCO3 30.5 mmol/L (22.0-26.0); ABG OXYGEN SATURATION 94.5 % (95-98); ABG PCO2 (T) 45.8 mmHg (35.0-45.0); ABG PH (T) 7.442 (7.350-7.450); ABG PO2 (T) 68.8 mmHg (83-108); ALLEN'S TEST Positive; FCOHb 0.3 % (0.5-1.5); FO2Hb 94.2 % (94-100); MINUTE VOLUME 10 L/min; PATIENT TEMPERATURE 37.2; PEEP 5 cm H2O; RESPIRATORY RATE 20 b/min; RESPIRATORY RATE (OBSERVED) 24 b/min; TIDAL VOLUME 400 mL; TOTAL HEMOGLOBIN 14.1 G/dl (14.0-17.9)
[2019-03-05 03:44] LABS: BASOPHILS % (AUTO) 0.2 % (0-1); EOSINOPHILS % (AUTO) 0 % (0-6); HEMATOCRIT 39.7 % (42.0-52.0); LYMPHOCYTES # (AUTO) 0.4 X10'3 (1.1-4.8); LYMPHOCYTES % (AUTO) 4.3 % (21-51); MEAN CORPUSCULAR HEMOGLOBIN 31.7 PG (27.0-31.0); MEAN CORPUSCULAR HGB CONC 32.8 g/dL (33.0-36.5); MEAN CORPUSCULAR VOLUME 96.6 FL (78-98); MEAN PLATELET VOLUME 9.9 FL (7.4-10.4); MONOCYTES # (AUTO) 0.5 X10'3 (0-0.9); MONOCYTES % (AUTO) 5.5 % (2-12); PLATELET COUNT 84 X10'3 (140-440); RED BLOOD COUNT 4.11 X10'6 (4.70-6.10); RED CELL DISTRIBUTION WIDTH 14.4 % (11.5-14.5); WHITE BLOOD COUNT 8.9 X10'3 (4.5-11.0)
[2019-03-05 04:07] LABS: ALANINE AMINOTRANSFERASE 24 U/L (12-78); ALBUMIN 1.9 G/DL (3.4-5.0); ALBUMIN/GLOBULIN RATIO 0.5 (1.1-1.5); ALKALINE PHOSPHATASE 56 IU/L (46-116); ANION GAP 2 (8-16); ASPARTATE AMINO TRANSFERASE 13 U/L (10-37); BILIRUBIN,TOTAL 0.3 MG/DL (0.1-1.0); BLOOD UREA NITROGEN 58 MG/DL (7-18); BUN/CREATININE RATIO 38.9 (5.4-32.0); CALCIUM 7.8 MG/DL (8.5-10.1); CHLORIDE 107 MMOL/L (99-107); CREATININE 1.49 MG/DL (0.60-1.10); GLUCOSE 194 MG/DL (70-104); MAGNESIUM 2.1 MG/DL (1.5-2.4); SODIUM 141 MMOL/L (135-145); TOTAL CARBON DIOXIDE 32.1 MMOL/L (24-32); TOTAL PROTEIN 5.8 G/DL (6.4-8.2); eGFR 46 ML/MIN
[2019-03-05] MEDS: FENTANYL-0.9 % NACL/PF 100 ML IV PRN ×2 (04:26→17:16)
[2019-03-05] MEDS: normal saline 1000ml 1,000 ML IV SCH (04:34)
--- NOTE | 2019-03-05 06:25 | NUR ---
SBAR TO Nuvia morton NO QUESTIONS OR CONCERNS AFTER SHIFT REPORT
[2019-03-05] MEDS: aztreonam inj. 2,000 MG in dextrose 5%-water 100 ML IV SCH ×2 (07:20→15:01)
[2019-03-05] MEDS: atorvastatin 10mg tablet PO SCH (07:20)
[2019-03-05] MEDS: famotidine 20mg tablet PO SCH ×2 (07:21→21:35)
[2019-03-05] MEDS: levoTHYROXINE 112mcg tablet PO SCH (07:21)
[2019-03-05] MEDS: aspirin 81mg tab.chew PO SCH (07:21)
[2019-03-05] MEDS: vitamin D (cholecalciferol) 1,000 unit tablet PO SCH (07:21)
[2019-03-05] MEDS: docusate sodium 100mg/10ml UD cup PO SCH (07:21)
[2019-03-05] MEDS: heparin, porcine 5000 units/ml vial SQ SCH ×2 (07:21→21:35)
[2019-03-05] MEDS: lactobacillus rhamnosus 10,000 MMU CELLS/CAPSULE PO SCH ×2 (07:22→21:34)
[2019-03-05] MEDS: venlafaxine XR 75mg capsule (Q24H) PO SCH (07:22)
[2019-03-05] MEDS: tamsulosin 0.4mg capsule PO SCH (07:22)
[2019-03-05] MEDS: allopurinol 100mg tablet PO SCH (07:27)
[2019-03-05] MEDS: midazolam 100mg in NS 100ml 100 ML IV PRN ×2 (07:27→17:16)
[2019-03-05] MEDS: budesonide 0.5mg/2ml UD nebule IH SCH ×2 (07:44→21:18)
--- NOTE | 2019-03-05 18:30 | NUR ---
Patient in room ICU 2042. I have received report from Jackson BAKER and had the opportunity to ask questions and assume patient care.
[2019-03-05] MEDS ORDERED: vancomycin/NS 1 GM ADD-VANTAGE 250 ML IV SCH (20:00)
[2019-03-05] MEDS: traZODone 50mg tablet PO SCH (21:35)
[2019-03-05] MEDS: sennosides/docusate sodium tablet PO SCH (21:35)
[2019-03-05] MEDS: quetiapine 100mg tablet PO SCH (21:36)
[2019-03-05] MEDS: insulin glargine (Lantus) pen - multi-dose SQ SCH (21:49)
[2019-03-06] VITALS (24 sets, daily range): BP systolic 128–168; BP diastolic 59–95
[2019-03-06] MEDS: aztreonam inj. 2,000 MG in dextrose 5%-water 100 ML IV SCH ×3 (00:25→15:05)
[2019-03-06] MEDS: normal saline 1000ml 1,000 ML IV SCH (02:22)
[2019-03-06] MEDS: methylPREDNISolone sod succ 125mg/2ml vial IV SCH ×3 (02:23→20:33)
[2019-03-06] MEDS: mineral oil/petrolatum ophthal oint EACHEYE SCH ×4 (02:23→20:33)
[2019-03-06] MEDS: insulin regular, human vial - multi-dose SQ SCH ×4 (02:25→20:56)
[2019-03-06] MEDS: albuterol 2.5 MG/3 ML nebule NEB SCH ×4 (02:39→21:05)
[2019-03-06 03:25] LABS: ABG BASE EXCESS 5.1 mmol/L (-2.0-3.0); ABG HCO3 32.6 mmol/L (22.0-26.0); ABG OXYGEN SATURATION 95.4 % (95-98); ABG PCO2 (T) 58.2 mmHg (35.0-45.0); ABG PH (T) 7.363 (7.350-7.450); ABG PO2 (T) 73.6 mmHg (83-108); FCOHb 0.2 % (0.5-1.5); FMetHb 0.2 % (0.3-1.12); MINUTE VOLUME 8 L/min; PATIENT TEMPERATURE 36.2; PEEP 5 cm H2O; RESPIRATORY RATE 20 b/min; RESPIRATORY RATE (OBSERVED) 21 b/min; TIDAL VOLUME 400 mL; TOTAL HEMOGLOBIN 14.3 G/dl (14.0-17.9)
[2019-03-06 06:04] LABS: BASOPHILS % (AUTO) 0.1 % (0-1); EOSINOPHILS % (AUTO) 0 % (0-6); HEMATOCRIT 43.1 % (42.0-52.0); HEMOGLOBIN 13.8 g/dl (14.0-17.9); LYMPHOCYTES # (AUTO) 0.2 X10'3 (1.1-4.8); LYMPHOCYTES % (AUTO) 2.3 % (21-51); MEAN CORPUSCULAR HEMOGLOBIN 31.1 PG (27.0-31.0); MEAN CORPUSCULAR HGB CONC 32.1 g/dL (33.0-36.5); MEAN PLATELET VOLUME 9.6 FL (7.4-10.4); MONOCYTES # (AUTO) 0.6 X10'3 (0-0.9); MONOCYTES % (AUTO) 6.4 % (2-12); NEUTROPHILS # (AUTO) 9.2 X10'3 (1.8-7.7); NEUTROPHILS % (AUTO) 91.2 % (42-75); PLATELET COUNT 92 X10'3 (140-440); RED BLOOD COUNT 4.45 X10'6 (4.70-6.10); RED CELL DISTRIBUTION WIDTH 14.6 % (11.5-14.5)
[2019-03-06 06:19] LABS: ALANINE AMINOTRANSFERASE 34 U/L (12-78); ALBUMIN 1.9 G/DL (3.4-5.0); ALBUMIN/GLOBULIN RATIO 0.5 (1.1-1.5); ALKALINE PHOSPHATASE 58 IU/L (46-116); ANION GAP 5 (8-16); ASPARTATE AMINO TRANSFERASE 18 U/L (10-37); BILIRUBIN,TOTAL 0.4 MG/DL (0.1-1.0); BLOOD UREA NITROGEN 59 MG/DL (7-18); CALCIUM 7.8 MG/DL (8.5-10.1); CHLORIDE 106 MMOL/L (99-107); CREATININE 1.31 MG/DL (0.60-1.10); GLUCOSE 259 MG/DL (70-104); MAGNESIUM 2.1 MG/DL (1.5-2.4); PHOSPHORUS 2.7 MG/DL (2.3-4.5); POTASSIUM 4.2 MMOL/L (3.5-5.1); SODIUM 142 MMOL/L (135-145); TOTAL CARBON DIOXIDE 31.2 MMOL/L (24-32); TOTAL PROTEIN 5.8 G/DL (6.4-8.2); eGFR 53 ML/MIN
--- NOTE | 2019-03-06 06:22 | NUR ---
Problems reprioritized. Patient report given, questions answered & plan of care reviewed with Jackson BAKER.
[2019-03-06] MEDS: midazolam 100mg in NS 100ml 100 ML IV PRN ×2 (06:37→16:44)
[2019-03-06] MEDS: atorvastatin 10mg tablet PO SCH (07:08)
[2019-03-06] MEDS: allopurinol 100mg tablet PO SCH (07:08)
[2019-03-06] MEDS: aspirin 81mg tab.chew PO SCH (07:08)
[2019-03-06] MEDS: lactobacillus rhamnosus 10,000 MMU CELLS/CAPSULE PO SCH ×2 (07:08→20:34)
[2019-03-06] MEDS: vitamin D (cholecalciferol) 1,000 unit tablet PO SCH (07:09)
[2019-03-06] MEDS: famotidine 20mg tablet PO SCH ×2 (07:09→20:34)
[2019-03-06] MEDS: levoTHYROXINE 112mcg tablet PO SCH (07:09)
[2019-03-06] MEDS: heparin, porcine 5000 units/ml vial SQ SCH ×2 (07:09→20:34)
[2019-03-06] MEDS: docusate sodium 100mg/10ml UD cup PO SCH (07:09)
[2019-03-06] MEDS: venlafaxine XR 75mg capsule (Q24H) PO SCH (07:16)
[2019-03-06] MEDS: tamsulosin 0.4mg capsule PO SCH (07:16)
[2019-03-06] MEDS: budesonide 0.5mg/2ml UD nebule IH SCH (09:50)
--- NOTE | 2019-03-06 18:30 | NUR ---
Patient in room ICU 2042. I have received report from Jackson BAKER and had the opportunity to ask questions and assume patient care.
[2019-03-06] MEDS: sennosides/docusate sodium tablet PO SCH (20:34)
[2019-03-06] MEDS: FENTANYL-0.9 % NACL/PF 100 ML IV PRN (20:34)
[2019-03-06] MEDS: insulin glargine (Lantus) pen - multi-dose SQ SCH (20:58)
[2019-03-07] VITALS (24 sets, daily range): BP systolic 149–175; BP diastolic 70–93
[2019-03-07] MEDS: aztreonam inj. 2,000 MG in dextrose 5%-water 100 ML IV SCH ×2 (00:13→07:51)
[2019-03-07] MEDS ORDERED: VANCOMYCIN LEVEL IV ONE (01:30)
[2019-03-07 01:48] LABS: BASOPHILS % (AUTO) 0 % (0-1); EOSINOPHILS % (AUTO) 0 % (0-6); HEMATOCRIT 42.3 % (42.0-52.0); HEMOGLOBIN 13.7 g/dl (14.0-17.9); LYMPHOCYTES # (AUTO) 0.3 X10'3 (1.1-4.8); MEAN CORPUSCULAR HEMOGLOBIN 31.1 PG (27.0-31.0); MEAN CORPUSCULAR HGB CONC 32.3 g/dL (33.0-36.5); MEAN CORPUSCULAR VOLUME 96.1 FL (78-98); MEAN PLATELET VOLUME 8.8 FL (7.4-10.4); MONOCYTES % (AUTO) 8.8 % (2-12); NEUTROPHILS # (AUTO) 9.9 X10'3 (1.8-7.7); NEUTROPHILS % (AUTO) 88.2 % (42-75); PLATELET COUNT 105 X10'3 (140-440); RED CELL DISTRIBUTION WIDTH 14.3 % (11.5-14.5); WHITE BLOOD COUNT 11.3 X10'3 (4.5-11.0)
[2019-03-07] MEDS: mineral oil/petrolatum ophthal oint EACHEYE SCH ×4 (01:55→21:22)
[2019-03-07] MEDS: insulin regular, human vial - multi-dose SQ SCH ×4 (01:57→21:28)
[2019-03-07 01:59] LABS: ALANINE AMINOTRANSFERASE 52 U/L (12-78); ALBUMIN 1.9 G/DL (3.4-5.0); ALBUMIN/GLOBULIN RATIO 0.5 (1.1-1.5); ALKALINE PHOSPHATASE 58 IU/L (46-116); ANION GAP 5 (8-16); ASPARTATE AMINO TRANSFERASE 23 U/L (10-37); BILIRUBIN,TOTAL 0.5 MG/DL (0.1-1.0); BLOOD UREA NITROGEN 56 MG/DL (7-18); BUN/CREATININE RATIO 52.3 (5.4-32.0); CALCIUM 8.3 MG/DL (8.5-10.1); CHLORIDE 109 MMOL/L (99-107); CREATININE 1.07 MG/DL (0.60-1.10); GLUCOSE 168 MG/DL (70-104); MAGNESIUM 2.1 MG/DL (1.5-2.4); PHOSPHORUS 2.5 MG/DL (2.3-4.5); POTASSIUM 4.6 MMOL/L (3.5-5.1); SODIUM 146 MMOL/L (135-145); TOTAL CARBON DIOXIDE 32.3 MMOL/L (24-32); TOTAL PROTEIN 5.7 G/DL (6.4-8.2); VANCOMYCIN,TROUGH 18.5 UG/ML (6.0-14.0); eGFR 67 ML/MIN
[2019-03-07 02:37] LABS: TOTAL CELLS COUNTED 100
[2019-03-07 02:38] LABS: PLATELET ESTIMATE DECREASED
[2019-03-07] MEDS: albuterol 2.5 MG/3 ML nebule NEB SCH ×4 (02:49→21:01)
[2019-03-07 05:01] LABS: ABG BASE EXCESS 3.2 mmol/L (-2.0-3.0); ABG HCO3 29.8 mmol/L (22.0-26.0); ABG OXYGEN SATURATION 92.5 % (95-98); ABG PCO2 (T) 52.5 mmHg (35.0-45.0); ABG PH (T) 7.371 (7.350-7.450); ABG PO2 (T) 62.4 mmHg (83-108); ALLEN'S TEST Positive; FCOHb 0.7 % (0.5-1.5); FMetHb 0.1 % (0.3-1.12); FO2Hb 91.8 % (94-100); MINUTE VOLUME 9 L/min; PATIENT TEMPERATURE 36.6; PEEP 5 cm H2O; RESPIRATORY RATE 22 b/min; RESPIRATORY RATE (OBSERVED) 22 b/min; TIDAL VOLUME 400 mL; TOTAL HEMOGLOBIN 14.6 G/dl (14.0-17.9)
[2019-03-07] MEDS: FENTANYL-0.9 % NACL/PF 100 ML IV PRN ×2 (05:55→17:00)
[2019-03-07] MEDS: normal saline 1000ml 1,000 ML IV SCH (05:56)
[2019-03-07] MEDS: methylPREDNISolone sod succ 125mg/2ml vial IV SCH ×2 (07:51→21:22)
[2019-03-07] MEDS: atorvastatin 10mg tablet PO SCH (07:51)
[2019-03-07] MEDS: docusate sodium 100mg/10ml UD cup PO SCH (07:51)
[2019-03-07] MEDS: vitamin D (cholecalciferol) 1,000 unit tablet PO SCH (07:52)
[2019-03-07] MEDS: allopurinol 100mg tablet PO SCH (07:52)
[2019-03-07] MEDS: levoTHYROXINE 112mcg tablet PO SCH (08:00)
[2019-03-07] MEDS: aspirin 81mg tab.chew PO SCH (08:00)
[2019-03-07] MEDS: venlafaxine XR 75mg capsule (Q24H) PO SCH (08:00)
[2019-03-07] MEDS: tamsulosin 0.4mg capsule PO SCH (08:00)
[2019-03-07] MEDS: lactobacillus rhamnosus 10,000 MMU CELLS/CAPSULE PO SCH ×2 (08:00→21:21)
[2019-03-07] MEDS: heparin, porcine 5000 units/ml vial SQ SCH ×2 (08:00→21:23)
[2019-03-07] MEDS: famotidine 20mg tablet PO SCH ×2 (08:01→21:21)
[2019-03-07] MEDS: midazolam 100mg in NS 100ml 100 ML IV PRN (08:15)
--- NOTE | 2019-03-07 11:19 | NUR ---
reassessment: Pt tolerating TF at goal. LBM 03/01 receiving routine colace; JANI discussed additional bowel care needs w/ . Renee 146 receiving 200ml Q4 water flushes. Will continue to monitor. Rec: 1. continuous tube feeding with Vital high protein per OG tube, goal rate of 90 ml/hr to provide 2160 ml total volume, 2160 cals, 189 g protein, and 1844 ml water. 2. Additional water flush 200 ml q 4 3. Prealbumin q Thursday and ;daily weights 4. routine bowel care Addendum: 03/07/19 at [address] Amended: Links added.
[2019-03-07] MEDS: dexmedetomidin/NS 400mcg/100ml 100 ML IV SCH ×4 (11:40→23:27)
[2019-03-07] MEDS: aztreonam inj. 2,000 MG in normal saline 100ml IV soln 100 ML IV SCH (16:59)
[2019-03-07] MEDS: sennosides/docusate sodium tablet PO SCH (21:21)
[2019-03-07] MEDS: insulin glargine (Lantus) pen - multi-dose SQ SCH (21:27)
[2019-03-08] VITALS (24 sets, daily range): BP systolic 163–189; BP diastolic 72–99
[2019-03-08] MEDS: aztreonam inj. 2,000 MG in normal saline 100ml IV soln 100 ML IV SCH ×3 (00:48→16:01)
[2019-03-08] MEDS: albuterol 2.5 MG/3 ML nebule NEB SCH ×4 (02:45→22:22)
[2019-03-08] MEDS: mineral oil/petrolatum ophthal oint EACHEYE SCH ×4 (03:03→20:32)
[2019-03-08] MEDS: insulin regular, human vial - multi-dose SQ SCH ×4 (03:18→20:36)
[2019-03-08 03:30] LABS: ABG BASE EXCESS 2.6 mmol/L (-2.0-3.0); ABG HCO3 28.7 mmol/L (22.0-26.0); ABG OXYGEN SATURATION 94.7 % (95-98); ABG PCO2 (T) 50.1 mmHg (35.0-45.0); ABG PH (T) 7.377 (7.350-7.450); ABG PO2 (T) 74.7 mmHg (83-108); ALLEN'S TEST Positive; FCOHb 0.4 % (0.5-1.5); FMetHb 0.1 % (0.3-1.12); FO2Hb 94.2 % (94-100); MINUTE VOLUME 11 L/min; PATIENT TEMPERATURE 37.2; PEEP 5 cm H2O; RESPIRATORY RATE 22 b/min; RESPIRATORY RATE (OBSERVED) 24 b/min; TIDAL VOLUME 400 mL; TOTAL HEMOGLOBIN 15.4 G/dl (14.0-17.9)
[2019-03-08] MEDS: dexmedetomidin/NS 400mcg/100ml 100 ML IV SCH ×7 (03:31→23:04)
[2019-03-08 03:38] LABS: BASOPHILS % (AUTO) 0.1 % (0-1); EOSINOPHILS % (AUTO) 0.3 % (0-6); HEMATOCRIT 45.5 % (42.0-52.0); HEMOGLOBIN 14.9 g/dl (14.0-17.9); LYMPHOCYTES # (AUTO) 0.3 X10'3 (1.1-4.8); LYMPHOCYTES % (AUTO) 3.5 % (21-51); MEAN CORPUSCULAR HEMOGLOBIN 31.4 PG (27.0-31.0); MEAN CORPUSCULAR HGB CONC 32.7 g/dL (33.0-36.5); MEAN CORPUSCULAR VOLUME 96.3 FL (78-98); MEAN PLATELET VOLUME 8.7 FL (7.4-10.4); MONOCYTES # (AUTO) 0.5 X10'3 (0-0.9); NEUTROPHILS # (AUTO) 9.1 X10'3 (1.8-7.7); NEUTROPHILS % (AUTO) 91.1 % (42-75); PLATELET COUNT 105 X10'3 (140-440); RED BLOOD COUNT 4.72 X10'6 (4.70-6.10); RED CELL DISTRIBUTION WIDTH 14.6 % (11.5-14.5)
[2019-03-08 03:58] LABS: ALANINE AMINOTRANSFERASE 90 U/L (12-78); ALBUMIN 1.9 G/DL (3.4-5.0); ALBUMIN/GLOBULIN RATIO 0.4 (1.1-1.5); ALKALINE PHOSPHATASE 67 IU/L (46-116); ANION GAP 4 (8-16); ASPARTATE AMINO TRANSFERASE 32 U/L (10-37); BILIRUBIN,TOTAL 0.6 MG/DL (0.1-1.0); BLOOD UREA NITROGEN 53 MG/DL (7-18); CALCIUM 8.3 MG/DL (8.5-10.1); CHLORIDE 110 MMOL/L (99-107); CREATININE 1.06 MG/DL (0.60-1.10); GLUCOSE 186 MG/DL (70-104); MAGNESIUM 1.9 MG/DL (1.5-2.4); PHOSPHORUS 3.8 MG/DL (2.3-4.5); SODIUM 146 MMOL/L (135-145); TOTAL CARBON DIOXIDE 32.2 MMOL/L (24-32); TOTAL PROTEIN 6.2 G/DL (6.4-8.2); eGFR 68 ML/MIN
[2019-03-08 04:11] LABS: TOTAL CELLS COUNTED 100
[2019-03-08 04:12] LABS: BANDS% (MANUAL) 9 % (0-10); LYMPHOCYTES % (MANUAL) 2 % (21-51); METAMYLEOCYTES% (MANUAL) 2 % (0-0); MONOCYTES % (MANUAL) 3 % (2-12); MYELOCYTES % (MANUAL) 3 % (0-0); NEUTROPHILS % (MANUAL) 81 % (42-75); PLATELET ESTIMATE DECREASED
[2019-03-08] MEDS: FENTANYL-0.9 % NACL/PF 100 ML IV PRN ×3 (05:18→23:04)
[2019-03-08] MEDS: normal saline 1000ml 1,000 ML IV SCH ×2 (06:00→21:39)
[2019-03-08] MEDS: lactobacillus rhamnosus 10,000 MMU CELLS/CAPSULE PO SCH (07:47)
[2019-03-08] MEDS: heparin, porcine 5000 units/ml vial SQ SCH ×2 (07:47→20:24)
[2019-03-08] MEDS: docusate sodium 100mg/10ml UD cup PO SCH (07:47)
[2019-03-08] MEDS: aspirin 81mg tab.chew PO SCH (07:47)
[2019-03-08] MEDS: vitamin D (cholecalciferol) 1,000 unit tablet PO SCH (07:47)
[2019-03-08] MEDS: methylPREDNISolone sod succ 125mg/2ml vial IV SCH ×2 (07:47→20:23)
[2019-03-08] MEDS: famotidine 20mg tablet PO SCH (07:47)
[2019-03-08] MEDS: atorvastatin 10mg tablet PO SCH (07:48)
[2019-03-08] MEDS: allopurinol 100mg tablet PO SCH (07:48)
[2019-03-08] MEDS: levoTHYROXINE 112mcg tablet PO SCH (07:48)
[2019-03-08] MEDS: tamsulosin 0.4mg capsule PO SCH (07:49)
[2019-03-08] MEDS: venlafaxine XR 75mg capsule (Q24H) PO SCH (07:49)
[2019-03-08] MEDS ORDERED: losartan 25mg tablet PO SCH (09:00)
[2019-03-08] MEDS ORDERED: acetaminophen 325mg/10.15ml oral unit dose solution OGT PRN ×2 (10:57)
[2019-03-08] MEDS ORDERED: dextrose ORAL solution 15 GM/59 ML bottle OGT PRN ×2 (10:58)
[2019-03-08] MEDS ORDERED: losartan 25mg tablet OGT SCH (10:59)
[2019-03-08] MEDS ORDERED: potassium Cl 20 mEq SR tablet OGT PRN ×2 (11:00→11:01)
--- NOTE | 2019-03-08 13:00 | NUR ---
patient still demonstrates high blood pressure dr. young aware and does not want to add further anti hypertensives at this time
[2019-03-08] MEDS: venlafaxine 37.5mg tablet PO SCH (20:21)
[2019-03-08] MEDS: famotidine 20mg tablet OGT SCH (20:21)
[2019-03-08] MEDS: sennosides/docusate sodium tablet OGT SCH (20:21)
[2019-03-08] MEDS: lactobacillus rhamnosus 10,000 MMU CELLS/CAPSULE OGT SCH (20:21)
[2019-03-08] MEDS: insulin glargine (Lantus) pen - multi-dose SQ SCH (20:37)
[2019-03-09] VITALS (24 sets, daily range): BP systolic 119–195; BP diastolic 67–101
[2019-03-09] MEDS: aztreonam inj. 2,000 MG in normal saline 100ml IV soln 100 ML IV SCH ×3 (00:03→17:32)
[2019-03-09] MEDS: dexmedetomidin/NS 400mcg/100ml 100 ML IV SCH ×6 (01:19→22:28)
[2019-03-09] MEDS: mineral oil/petrolatum ophthal oint EACHEYE SCH ×4 (02:33→20:48)
[2019-03-09] MEDS: albuterol 2.5 MG/3 ML nebule NEB SCH ×4 (02:36→21:02)
[2019-03-09] MEDS: insulin regular, human vial - multi-dose SQ SCH ×3 (02:38→14:59)
[2019-03-09 02:51] LABS: BASOPHILS % (AUTO) 0.2 % (0-1); EOSINOPHILS % (AUTO) 0.3 % (0-6); HEMATOCRIT 45.5 % (42.0-52.0); HEMOGLOBIN 14.8 g/dl (14.0-17.9); LYMPHOCYTES # (AUTO) 0.4 X10'3 (1.1-4.8); LYMPHOCYTES % (AUTO) 3.7 % (21-51); MEAN CORPUSCULAR HEMOGLOBIN 31.3 PG (27.0-31.0); MEAN CORPUSCULAR HGB CONC 32.6 g/dL (33.0-36.5); MEAN CORPUSCULAR VOLUME 95.9 FL (78-98); MEAN PLATELET VOLUME 8.9 FL (7.4-10.4); MONOCYTES # (AUTO) 0.6 X10'3 (0-0.9); MONOCYTES % (AUTO) 5.2 % (2-12); NEUTROPHILS # (AUTO) 10.4 X10'3 (1.8-7.7); NEUTROPHILS % (AUTO) 90.6 % (42-75); PLATELET COUNT 112 X10'3 (140-440); RED BLOOD COUNT 4.74 X10'6 (4.70-6.10); RED CELL DISTRIBUTION WIDTH 14.6 % (11.5-14.5); WHITE BLOOD COUNT 11.5 X10'3 (4.5-11.0)
[2019-03-09 03:07] LABS: ALANINE AMINOTRANSFERASE 88 U/L (12-78); ALBUMIN 1.9 G/DL (3.4-5.0); ALBUMIN/GLOBULIN RATIO 0.4 (1.1-1.5); ALKALINE PHOSPHATASE 73 IU/L (46-116); ANION GAP 5 (8-16); ASPARTATE AMINO TRANSFERASE 24 U/L (10-37); BILIRUBIN,TOTAL 0.6 MG/DL (0.1-1.0); BLOOD UREA NITROGEN 46 MG/DL (7-18); BUN/CREATININE RATIO 48.4 (5.4-32.0); CALCIUM 8.7 MG/DL (8.5-10.1); CHLORIDE 108 MMOL/L (99-107); CREATININE 0.95 MG/DL (0.60-1.10); GLUCOSE 146 MG/DL (70-104); MAGNESIUM 1.8 MG/DL (1.5-2.4); PHOSPHORUS 3.4 MG/DL (2.3-4.5); POTASSIUM 4.8 MMOL/L (3.5-5.1); SODIUM 144 MMOL/L (135-145); TOTAL CARBON DIOXIDE 31.3 MMOL/L (24-32); TOTAL PROTEIN 6.3 G/DL (6.4-8.2); eGFR 77 ML/MIN
[2019-03-09 03:26] LABS: ABG BASE EXCESS 4.6 mmol/L (-2.0-3.0); ABG HCO3 30.5 mmol/L (22.0-26.0); ABG OXYGEN SATURATION 93.9 % (95-98); ABG PCO2 (T) 49.6 mmHg (35.0-45.0); ABG PH (T) 7.407 (7.350-7.450); ABG PO2 (T) 67.9 mmHg (83-108); FCOHb 0.6 % (0.5-1.5); FMetHb 0.2 % (0.3-1.12); FO2Hb 93.1 % (94-100); MINUTE VOLUME 10 L/min; PEEP 5 cm H2O; RESPIRATORY RATE 22 b/min; RESPIRATORY RATE (OBSERVED) 22 b/min; TIDAL VOLUME 400 mL; TOTAL HEMOGLOBIN 15.8 G/dl (14.0-17.9)
[2019-03-09 03:32] LABS: BANDS% (MANUAL) 3 % (0-10); LYMPHOCYTES % (MANUAL) 1 % (21-51); METAMYLEOCYTES% (MANUAL) 2 % (0-0); MONOCYTES % (MANUAL) 1 % (2-12); NEUTROPHILS % (MANUAL) 93 % (42-75); TOTAL CELLS COUNTED 100
[2019-03-09 03:33] LABS: PLATELET ESTIMATE DECREASED
[2019-03-09] MEDS: FENTANYL-0.9 % NACL/PF 100 ML IV PRN ×3 (05:53→20:04)
[2019-03-09] MEDS: lactobacillus rhamnosus 10,000 MMU CELLS/CAPSULE OGT SCH ×2 (07:31→20:48)
[2019-03-09] MEDS: venlafaxine 37.5mg tablet PO SCH ×2 (07:32→20:48)
[2019-03-09] MEDS: docusate sodium 100mg/10ml UD cup OGT SCH (07:32)
[2019-03-09] MEDS: tamsulosin 0.4mg capsule PO SCH (07:33)
[2019-03-09] MEDS: methylPREDNISolone sod succ 125mg/2ml vial IV SCH ×2 (07:33→20:48)
[2019-03-09] MEDS: atorvastatin 10mg tablet OGT SCH (07:36)
[2019-03-09] MEDS: vitamin D (cholecalciferol) 1,000 unit tablet OGT SCH (07:37)
[2019-03-09] MEDS: levoTHYROXINE 112mcg tablet OGT SCH (07:37)
[2019-03-09] MEDS: allopurinol 100mg tablet OGT SCH (07:37)
[2019-03-09] MEDS: aspirin 81mg tab.chew OGT SCH (07:38)
[2019-03-09] MEDS: methylnaltrexone br 12mg/0.6ml inj***SubQ only SQ SCH (07:39)
[2019-03-09] MEDS: heparin, porcine 5000 units/ml vial SQ SCH ×2 (07:39→20:48)
[2019-03-09] MEDS: famotidine 20mg tablet OGT SCH ×2 (07:39→20:45)
[2019-03-09] MEDS ORDERED: methylPREDNISolone sod succ 125mg/2ml vial IV SCH (08:00)
[2019-03-09] MEDS ORDERED: losartan 25mg tablet PO ONE (10:45)
[2019-03-09] MEDS: normal saline 1000ml 1,000 ML IV SCH (17:35)
[2019-03-09] MEDS: ondansetron/PF 4mg/2ml inj IV PRN (18:34)
[2019-03-09] MEDS ORDERED: bisacodyl 10mg suppository rectal RC PRN (19:25)
[2019-03-09] MEDS: sennosides/docusate sodium tablet OGT SCH (20:46)
[2019-03-09] MEDS: insulin glargine (Lantus) pen - multi-dose SQ SCH (21:00)
[2019-03-09] MEDS: dextrose 5%-1/2 normal saline 1,000 ML IV SCH (23:05)
[2019-03-10] VITALS (24 sets, daily range): BP systolic 92–166; BP diastolic 60–91
[2019-03-10] MEDS: aztreonam inj. 2,000 MG in normal saline 100ml IV soln 100 ML IV SCH ×3 (00:21→16:14)
[2019-03-10] MEDS: FENTANYL-0.9 % NACL/PF 100 ML IV PRN ×2 (00:31→04:49)
[2019-03-10] MEDS: dexmedetomidin/NS 400mcg/100ml 100 ML IV SCH ×6 (01:13→17:05)
[2019-03-10] MEDS: mineral oil/petrolatum ophthal oint EACHEYE SCH ×4 (02:23→20:00)
[2019-03-10 03:29] LABS: BASOPHILS # (AUTO) 0.1 X10'3 (0-0.2); BASOPHILS % (AUTO) 0.4 % (0-1); EOSINOPHILS % (AUTO) 0.2 % (0-6); HEMATOCRIT 44.8 % (42.0-52.0); HEMOGLOBIN 14.8 g/dl (14.0-17.9); LYMPHOCYTES # (AUTO) 0.7 X10'3 (1.1-4.8); LYMPHOCYTES % (AUTO) 4.9 % (21-51); MEAN CORPUSCULAR HEMOGLOBIN 31.4 PG (27.0-31.0); MEAN CORPUSCULAR VOLUME 95.2 FL (78-98); MEAN PLATELET VOLUME 8.8 FL (7.4-10.4); MONOCYTES # (AUTO) 0.7 X10'3 (0-0.9); MONOCYTES % (AUTO) 4.5 % (2-12); NEUTROPHILS # (AUTO) 13.4 X10'3 (1.8-7.7); PLATELET COUNT 114 X10'3 (140-440); RED BLOOD COUNT 4.71 X10'6 (4.70-6.10); RED CELL DISTRIBUTION WIDTH 14.6 % (11.5-14.5); WHITE BLOOD COUNT 14.9 X10'3 (4.5-11.0)
[2019-03-10] MEDS: albuterol 2.5 MG/3 ML nebule NEB SCH ×2 (03:49→08:02)
[2019-03-10 03:50] LABS: ALANINE AMINOTRANSFERASE 64 U/L (12-78); ALBUMIN 1.8 G/DL (3.4-5.0); ALBUMIN/GLOBULIN RATIO 0.4 (1.1-1.5); ALKALINE PHOSPHATASE 68 IU/L (46-116); ANION GAP 5 (8-16); ASPARTATE AMINO TRANSFERASE 21 U/L (10-37); BILIRUBIN,TOTAL 0.7 MG/DL (0.1-1.0); BLOOD UREA NITROGEN 38 MG/DL (7-18); BUN/CREATININE RATIO 43.2 (5.4-32.0); CALCIUM 8.2 MG/DL (8.5-10.1); CHLORIDE 107 MMOL/L (99-107); CREATININE 0.88 MG/DL (0.60-1.10); GLUCOSE 76 MG/DL (70-104); MAGNESIUM 1.7 MG/DL (1.5-2.4); PHOSPHORUS 3.3 MG/DL (2.3-4.5); POTASSIUM 3.9 MMOL/L (3.5-5.1); SODIUM 145 MMOL/L (135-145); TOTAL CARBON DIOXIDE 33.4 MMOL/L (24-32); TOTAL PROTEIN 6.1 G/DL (6.4-8.2); eGFR 84 ML/MIN
[2019-03-10 04:00] LABS: ABG BASE EXCESS 8.1 mmol/L (-2.0-3.0); ABG HCO3 32.8 mmol/L (22.0-26.0); ABG OXYGEN SATURATION 93.5 % (95-98); ABG PCO2 (T) 45.4 mmHg (35.0-45.0); ABG PH (T) 7.477 (7.350-7.450); ABG PO2 (T) 64.8 mmHg (83-108); ALLEN'S TEST Positive; FCOHb 0.8 % (0.5-1.5); FO2Hb 92.8 % (94-100); MINUTE VOLUME 10 L/min; PEEP 5 cm H2O; RESPIRATORY RATE 22 b/min; RESPIRATORY RATE (OBSERVED) 22 b/min; TIDAL VOLUME 400 mL; TOTAL HEMOGLOBIN 15.3 G/dl (14.0-17.9)
--- NOTE | 2019-03-10 06:25 | NUR ---
Pt had emesis beginning at 1820 last night and again at approx 1900, pt had over 1000ml when OG hooked to low intermittent suction. Low blood sugars treated per protocol, pt continuing to c/o nausea, per Sheri Barrera have pt remeet protocol for hyperglycemia and start D5 1/2NS at 50mls/hr.
--- NOTE | 2019-03-10 07:06 | NUR ---
Problems reprioritized. Patient report given, questions answered & plan of care reviewed with Geovanni Alexander RN.
[2019-03-10] MEDS: methylPREDNISolone sod succ 125mg/2ml vial IV SCH ×2 (07:44→20:39)
[2019-03-10] MEDS: heparin, porcine 5000 units/ml vial SQ SCH ×2 (07:45→20:40)
[2019-03-10] MEDS: tamsulosin 0.4mg capsule PO SCH (08:00)
[2019-03-10] MEDS: docusate sodium 100mg/10ml UD cup OGT SCH (08:13)
[2019-03-10] MEDS: lactobacillus rhamnosus 10,000 MMU CELLS/CAPSULE OGT SCH (08:14)
[2019-03-10] MEDS: dextrose 5%-1/2 normal saline 1,000 ML IV SCH (08:14)
[2019-03-10] MEDS: allopurinol 100mg tablet OGT SCH (08:14)
[2019-03-10] MEDS: levoTHYROXINE 112mcg tablet OGT SCH (08:14)
[2019-03-10] MEDS: famotidine 20mg tablet OGT SCH (08:14)
[2019-03-10] MEDS: aspirin 81mg tab.chew OGT SCH (08:14)
[2019-03-10] MEDS: atorvastatin 10mg tablet OGT SCH (08:14)
[2019-03-10] MEDS: vitamin D (cholecalciferol) 1,000 unit tablet OGT SCH (08:14)
[2019-03-10] MEDS: venlafaxine 37.5mg tablet PO SCH ×2 (08:14→20:39)
[2019-03-10] MEDS: losartan 50mg tablet PO SCH (08:14)
[2019-03-10] MEDS: ondansetron/PF 4mg/2ml inj IV PRN ×2 (09:16→21:50)
[2019-03-10] MEDS ORDERED: racepinephrine 11.25mg/0.5ml nebule NEB PRN (09:50)
[2019-03-10] MEDS ORDERED: ipratropium/albuterol 3ml nebule NEB PRN (09:50)
--- NOTE | 2019-03-10 13:37 | NUR ---
reassessment: Patient was extubated this morning. Prior to extubation bedside RN reports high gastric residual volume of 1,000 ml, patient also with nausea and vomiting. Pt had NG to suction and 250 ml total was returned. Pt still with NG tube, TF order is still active however have been turned off after the high GRV. Received first dose of relistor today, colace since yesterday, and senna for two days. No BM in 9 days. Pt is constipated. Patient seen by SUGAR CANE PLANTER this afternoon for BSS, SUGAR CANE PLANTER reports patient having difficulty chewing and recommends pureed foods and thin liquids. Will continue to follow, recommend that patient continues with bowel care, d/w bedside RN. Rec: 1. continuous tube feeding with Vital high protein per OG tube, goal rate of 90 ml/hr to provide 2160 ml total volume, 2160 cals, 189 g protein, and 1844 ml water. Continue TF as able if low PO intake, current TF off, s/p high gastric residuals d/t constipation and no BM in nine days. Patient is receiving relistor now along with colace and senna. 2. Additional water flush 200 ml q 4 3. Prealbumin q Thursday and ;daily weights 4. routine bowel care 5. Pureed diet with thin liquids per SUGAR CANE PLANTER recs Addendum: 03/10/19 at [address] Amended: Links added.
[2019-03-10] MEDS: normal saline 1000ml 1,000 ML IV SCH (13:39)
[2019-03-10] MEDS ORDERED: acetaminophen 325mg/10.15ml oral unit dose solution PO PRN ×2 (14:14)
[2019-03-10] MEDS ORDERED: dextrose ORAL solution 15 GM/59 ML bottle PO PRN ×2 (14:15)
[2019-03-10] MEDS ORDERED: potassium Cl 20 mEq SR tablet PO PRN (14:17)
[2019-03-10] MEDS ORDERED: docusate sodium 100mg/10ml UD cup PO SCH (14:17)
[2019-03-10] MEDS: ipratropium/albuterol 3ml nebule NEB SCH ×2 (15:22→21:47)
--- NOTE | 2019-03-10 18:37 | NUR ---
Problems reprioritized. Patient report given, questions answered & plan of care reviewed with Mac RN.
[2019-03-10] MEDS: sennosides/docusate sodium tablet PO SCH (20:25)
[2019-03-10] MEDS: lactobacillus rhamnosus 10,000 MMU CELLS/CAPSULE PO SCH (20:39)
[2019-03-10] MEDS: famotidine 20mg tablet PO SCH (20:40)
[2019-03-10] MEDS: insulin glargine (Lantus) pen - multi-dose SQ SCH (21:00)
[2019-03-11] VITALS (24 sets, daily range): BP systolic 111–161; BP diastolic 30–83
[2019-03-11] MEDS: mineral oil/petrolatum ophthal oint EACHEYE SCH ×3 (02:00→14:00)
[2019-03-11] MEDS: ipratropium/albuterol 3ml nebule NEB SCH ×4 (03:41→20:14)
[2019-03-11 04:29] LABS: BASOPHILS # (AUTO) 0.1 X10'3 (0-0.2); BASOPHILS % (AUTO) 0.4 % (0-1); EOSINOPHILS % (AUTO) 0.2 % (0-6); HEMATOCRIT 44.9 % (42.0-52.0); HEMOGLOBIN 14.7 g/dl (14.0-17.9); LYMPHOCYTES # (AUTO) 0.7 X10'3 (1.1-4.8); LYMPHOCYTES % (AUTO) 4.2 % (21-51); MEAN CORPUSCULAR HEMOGLOBIN 30.9 PG (27.0-31.0); MEAN CORPUSCULAR HGB CONC 32.7 g/dL (33.0-36.5); MEAN CORPUSCULAR VOLUME 94.7 FL (78-98); MEAN PLATELET VOLUME 8.2 FL (7.4-10.4); MONOCYTES # (AUTO) 0.6 X10'3 (0-0.9); MONOCYTES % (AUTO) 3.6 % (2-12); NEUTROPHILS # (AUTO) 16.1 X10'3 (1.8-7.7); NEUTROPHILS % (AUTO) 91.6 % (42-75); PLATELET COUNT 127 X10'3 (140-440); RED BLOOD COUNT 4.74 X10'6 (4.70-6.10); WHITE BLOOD COUNT 17.6 X10'3 (4.5-11.0)
[2019-03-11] MEDS: dexmedetomidin/NS 400mcg/100ml 100 ML IV SCH ×2 (05:00→08:38)
[2019-03-11 05:39] LABS: ALANINE AMINOTRANSFERASE 44 U/L (12-78); ALBUMIN 1.8 G/DL (3.4-5.0); ALBUMIN/GLOBULIN RATIO 0.4 (1.1-1.5); ALKALINE PHOSPHATASE 68 IU/L (46-116); ANION GAP 7 (8-16); ASPARTATE AMINO TRANSFERASE 19 U/L (10-37); BILIRUBIN,TOTAL 0.7 MG/DL (0.1-1.0); BLOOD UREA NITROGEN 34 MG/DL (7-18); CALCIUM 7.9 MG/DL (8.5-10.1); CHLORIDE 104 MMOL/L (99-107); GLUCOSE 136 MG/DL (70-104); MAGNESIUM 1.6 MG/DL (1.5-2.4); PHOSPHORUS 3.2 MG/DL (2.3-4.5); POTASSIUM 4.3 MMOL/L (3.5-5.1); SODIUM 141 MMOL/L (135-145); TOTAL CARBON DIOXIDE 29.7 MMOL/L (24-32); eGFR 73 ML/MIN
[2019-03-11] MEDS: venlafaxine 37.5mg tablet PO SCH ×2 (07:52→20:34)
[2019-03-11] MEDS: atorvastatin 10mg tablet PO SCH (07:52)
[2019-03-11] MEDS: famotidine 20mg tablet PO SCH ×2 (07:52→20:33)
[2019-03-11] MEDS: lactobacillus rhamnosus 10,000 MMU CELLS/CAPSULE PO SCH ×2 (07:52→20:34)
[2019-03-11] MEDS: losartan 50mg tablet PO SCH (07:52)
[2019-03-11] MEDS: heparin, porcine 5000 units/ml vial SQ SCH ×2 (07:53→20:33)
[2019-03-11] MEDS: levoTHYROXINE 112mcg tablet PO SCH (07:53)
[2019-03-11] MEDS: vitamin D (cholecalciferol) 1,000 unit tablet OGT SCH (07:53)
[2019-03-11] MEDS: aspirin 81mg tab.chew PO SCH (07:53)
[2019-03-11] MEDS: allopurinol 100mg tablet PO SCH (07:53)
[2019-03-11] MEDS: tamsulosin 0.4mg capsule PO SCH (07:53)
[2019-03-11] MEDS: methylPREDNISolone sod succ 125mg/2ml vial IV SCH ×2 (07:53→20:35)
[2019-03-11] MEDS: methylnaltrexone br 12mg/0.6ml inj***SubQ only SQ SCH (08:00)
[2019-03-11] MEDS: docusate sod 100mg capsule PO SCH (08:00)
[2019-03-11] MEDS: aztreonam inj. 2,000 MG in normal saline 100ml IV soln 100 ML IV SCH ×4 (08:01→15:34)
--- NOTE | 2019-03-11 12:24 | NUR ---
reassessment: Patient's relistor and colace were held this morning per Bedside RN d/t diarrhea, patient has moderate liquid stools likely d/t no BM for 10 days prior. Poor appetite on pureed diet, pt reports nothing taste good. RN suggests ensure pudding, OK by MD as discussed at rounds. Will send on meals, d/w dietary. Poor appetite and PO intake r/t recent extubation and patient's not preferring pureed foods. Patient is on pureed diet per CUT OFF MACHINE OPERATOR recs, BSS done this morning and per CUT OFF MACHINE OPERATOR report patient has missing teeth and difficulty chewing. Per MD note receiving treatment for sepsis and UTI. No longer on tube feedings, no tube. Will continue to follow. Rec: 1. Pureed diet with thin liquids per CUT OFF MACHINE OPERATOR recs 2. Send ensure puddings with meals 3. bowel care as needed 4. weight per rx Addendum: 03/11/19 at [address] Amended: Links added.
[2019-03-11] MEDS ORDERED: VANCOMYCIN LEVEL IV ONE (13:30)
[2019-03-11] MEDS: ondansetron/PF 4mg/2ml inj IV PRN (15:34)
--- NOTE | 2019-03-11 16:03 | NUR ---
Critical vanco trough of 23.5, Juvenal from pharmacy notified to adjust dose.
--- NOTE | 2019-03-11 18:31 | NUR ---
Problems reprioritized. Patient report given, questions answered & plan of care reviewed with Agueda BAKER.
[2019-03-11] MEDS: sennosides/docusate sodium tablet PO SCH (21:00)
[2019-03-11] MEDS: insulin glargine (Lantus) pen - multi-dose SQ SCH (21:00)
[2019-03-12] VITALS (18 sets, daily range): BP systolic 128–178; BP diastolic 57–91
[2019-03-12] MEDS: aztreonam inj. 2,000 MG in normal saline 100ml IV soln 100 ML IV SCH ×3 (00:17→16:07)
[2019-03-12] MEDS: ipratropium/albuterol 3ml nebule NEB SCH ×4 (02:53→20:36)
[2019-03-12 03:46] LABS: ALANINE AMINOTRANSFERASE 40 U/L (12-78); ALBUMIN/GLOBULIN RATIO 0.5 (1.1-1.5); ALKALINE PHOSPHATASE 66 IU/L (46-116); ANION GAP 4 (8-16); ASPARTATE AMINO TRANSFERASE 16 U/L (10-37); BILIRUBIN,TOTAL 0.6 MG/DL (0.1-1.0); BLOOD UREA NITROGEN 31 MG/DL (7-18); BUN/CREATININE RATIO 33.3 (5.4-32.0); CALCIUM 8.1 MG/DL (8.5-10.1); CHLORIDE 108 MMOL/L (99-107); CREATININE 0.93 MG/DL (0.60-1.10); GLUCOSE 133 MG/DL (70-104); MAGNESIUM 1.8 MG/DL (1.5-2.4); PHOSPHORUS 3.4 MG/DL (2.3-4.5); SODIUM 145 MMOL/L (135-145); TOTAL CARBON DIOXIDE 33.2 MMOL/L (24-32); TOTAL PROTEIN 6.2 G/DL (6.4-8.2); eGFR 79 ML/MIN
[2019-03-12 03:50] LABS: BASOPHILS % (AUTO) 0.2 % (0-1); EOSINOPHILS % (AUTO) 0.1 % (0-6); HEMATOCRIT 43.7 % (42.0-52.0); HEMOGLOBIN 14.5 g/dl (14.0-17.9); LYMPHOCYTES # (AUTO) 0.6 X10'3 (1.1-4.8); LYMPHOCYTES % (AUTO) 3.1 % (21-51); MEAN CORPUSCULAR HGB CONC 33.3 g/dL (33.0-36.5); MEAN CORPUSCULAR VOLUME 96.2 FL (78-98); MEAN PLATELET VOLUME 8.4 FL (7.4-10.4); MONOCYTES # (AUTO) 0.6 X10'3 (0-0.9); MONOCYTES % (AUTO) 3.1 % (2-12); NEUTROPHILS # (AUTO) 17.5 X10'3 (1.8-7.7); NEUTROPHILS % (AUTO) 93.5 % (42-75); PLATELET COUNT 146 X10'3 (140-440); RED BLOOD COUNT 4.54 X10'6 (4.70-6.10); RED CELL DISTRIBUTION WIDTH 14.6 % (11.5-14.5); WHITE BLOOD COUNT 18.8 X10'3 (4.5-11.0)
[2019-03-12] MEDS: VANCOmycin 1250MG/NS 250ml Bag 250 ML IV SCH ×2 (04:18→16:07)
--- NOTE | 2019-03-12 06:45 | NUR ---
Problems reprioritized. Patient report given, questions answered & plan of care reviewed with Marina BAKER.
[2019-03-12] MEDS: methylPREDNISolone sod succ 125mg/2ml vial IV SCH (08:33)
[2019-03-12] MEDS: famotidine 20mg tablet PO SCH (08:34)
[2019-03-12] MEDS: allopurinol 100mg tablet PO SCH (08:34)
[2019-03-12] MEDS: atorvastatin 10mg tablet PO SCH (08:34)
[2019-03-12] MEDS: heparin, porcine 5000 units/ml vial SQ SCH ×2 (08:34→20:16)
[2019-03-12] MEDS: lactobacillus rhamnosus 10,000 MMU CELLS/CAPSULE PO SCH ×2 (08:34→20:08)
[2019-03-12] MEDS: levoTHYROXINE 112mcg tablet PO SCH (08:34)
[2019-03-12] MEDS: venlafaxine 37.5mg tablet PO SCH ×2 (08:35→20:49)
[2019-03-12] MEDS: losartan 50mg tablet PO SCH (08:35)
[2019-03-12] MEDS: aspirin 81mg tab.chew PO SCH (08:35)
[2019-03-12] MEDS: docusate sod 100mg capsule PO SCH (08:35)
[2019-03-12] MEDS: vitamin D (cholecalciferol) 1,000 unit tablet OGT SCH (08:35)
[2019-03-12] MEDS: tamsulosin 0.4mg capsule PO SCH (08:35)
--- NOTE | 2019-03-12 13:00 | NUR ---
Patient in room PCU 3023. I have received report from OLIVIA Galarza and had the opportunity to ask questions and assume patient care. Patient arrived on unit, is alert and oriented and responds appropriately, VS obtained and he is stable, IV fluids running at TKO rate. Will continue to monitor
--- NOTE | 2019-03-12 13:33 | NUR ---
Patient transferred to U 3023- in [facility] and all medications, chart, and belongings. Report given to Agnes BAKER; all questions answered.
[2019-03-12] MEDS ORDERED: VANCOMYCIN LEVEL IV ONE (15:30)
--- NOTE | 2019-03-12 18:29 | NUR ---
Problems reprioritized. Patient report given, questions answered & plan of care reviewed with OLIVIA Browning. Patient currently resting in bed, bed locked and low, call light in reach, stable at shift change.
--- NOTE | 2019-03-12 18:35 | NUR ---
Patient in room PCU 3029V. I have received report from and had the opportunity to ask questions and assume patient care. Pt is resting comfortably , 2-3 liters of oxygen via NC.
[2019-03-12] MEDS: sennosides/docusate sodium tablet PO SCH (20:09)
[2019-03-12] MEDS: insulin glargine (Lantus) pen - multi-dose SQ SCH (20:51)
--- NOTE | 2019-03-12 23:05 | NUR ---
AT 18:00 patient 's SPO2 was 95 with 2L of oxygen via NC. Titrated to 1L of oxygen
--- NOTE | 2019-03-12 23:21 | NUR ---
Pt's SPO2 is 94 in 1L via NC. Placing pt in room air . Per 's instructions pt should be between 88% and 90% Addendum: 03/12/19 at 2322 by Nam Koroma RN Amended: Links added.
[2019-03-13] VITALS (7 sets, daily range): BP systolic 134–181; BP diastolic 62–88
[2019-03-13] MEDS: ipratropium/albuterol 3ml nebule NEB SCH ×4 (02:51→20:37)
[2019-03-13] MEDS: VANCOmycin 1250MG/NS 250ml Bag 250 ML IV SCH (03:25)
--- NOTE | 2019-03-13 06:35 | NUR ---
Problems reprioritized. Patient report given, questions answered & plan of care reviewed with OLIVIA Gonzalez. Pt is sleeping and in stable condition at shift change
[2019-03-13] MEDS: aztreonam inj. 2,000 MG in normal saline 100ml IV soln 100 ML IV SCH ×5 (08:13→23:50)
[2019-03-13] MEDS: aspirin 81mg tab.chew PO SCH (08:13)
[2019-03-13] MEDS: losartan 50mg tablet PO SCH (08:13)
[2019-03-13] MEDS: docusate sod 100mg capsule PO SCH (08:13)
[2019-03-13] MEDS: vitamin D (cholecalciferol) 1,000 unit tablet OGT SCH (08:13)
[2019-03-13] MEDS: atorvastatin 10mg tablet PO SCH (08:14)
[2019-03-13] MEDS: levoTHYROXINE 112mcg tablet PO SCH (08:14)
[2019-03-13] MEDS: lactobacillus rhamnosus 10,000 MMU CELLS/CAPSULE PO SCH ×2 (08:14→20:07)
[2019-03-13] MEDS: venlafaxine 37.5mg tablet PO SCH ×2 (08:14→20:06)
[2019-03-13] MEDS: tamsulosin 0.4mg capsule PO SCH (08:14)
[2019-03-13] MEDS: allopurinol 100mg tablet PO SCH (08:14)
[2019-03-13] MEDS: heparin, porcine 5000 units/ml vial SQ SCH ×2 (08:15→20:07)
[2019-03-13 08:48] LABS: BASOPHILS % (AUTO) 0.2 % (0-1); EOSINOPHILS # (AUTO) 0.1 X10'3 (0-0.9); EOSINOPHILS % (AUTO) 0.6 % (0-6); HEMATOCRIT 44.9 % (42.0-52.0); HEMOGLOBIN 14.5 g/dl (14.0-17.9); LYMPHOCYTES # (AUTO) 0.9 X10'3 (1.1-4.8); LYMPHOCYTES % (AUTO) 6.2 % (21-51); MEAN CORPUSCULAR HEMOGLOBIN 31.1 PG (27.0-31.0); MEAN CORPUSCULAR HGB CONC 32.2 g/dL (33.0-36.5); MEAN CORPUSCULAR VOLUME 96.5 FL (78-98); MEAN PLATELET VOLUME 8.1 FL (7.4-10.4); MONOCYTES # (AUTO) 1.2 X10'3 (0-0.9); MONOCYTES % (AUTO) 8.1 % (2-12); NEUTROPHILS # (AUTO) 12.9 X10'3 (1.8-7.7); NEUTROPHILS % (AUTO) 84.9 % (42-75); PLATELET COUNT 142 X10'3 (140-440); RED BLOOD COUNT 4.65 X10'6 (4.70-6.10); RED CELL DISTRIBUTION WIDTH 14.4 % (11.5-14.5); WHITE BLOOD COUNT 15.1 X10'3 (4.5-11.0)
[2019-03-13 09:01] LABS: ALANINE AMINOTRANSFERASE 41 U/L (12-78); ALBUMIN 2.1 G/DL (3.4-5.0); ALBUMIN/GLOBULIN RATIO 0.5 (1.1-1.5); ALKALINE PHOSPHATASE 63 IU/L (46-116); ANION GAP 5 (8-16); ASPARTATE AMINO TRANSFERASE 23 U/L (10-37); BILIRUBIN,TOTAL 0.7 MG/DL (0.1-1.0); BLOOD UREA NITROGEN 25 MG/DL (7-18); BUN/CREATININE RATIO 28.4 (5.4-32.0); CALCIUM 8.2 MG/DL (8.5-10.1); CHLORIDE 109 MMOL/L (99-107); CREATININE 0.88 MG/DL (0.60-1.10); GLUCOSE 112 MG/DL (70-104); MAGNESIUM 1.7 MG/DL (1.5-2.4); POTASSIUM 3.6 MMOL/L (3.5-5.1); SODIUM 148 MMOL/L (135-145); TOTAL CARBON DIOXIDE 33.9 MMOL/L (24-32); TOTAL PROTEIN 6.3 G/DL (6.4-8.2); eGFR 84 ML/MIN
[2019-03-13 10:06] LABS: ABG BASE EXCESS 9.6 mmol/L (-2.0-3.0); ABG HCO3 35.7 mmol/L (22.0-26.0); ABG OXYGEN SATURATION 92.4 % (95-98); ABG PCO2 (T) 52.4 mmHg (35.0-45.0); ABG PH (T) 7.451 (7.350-7.450); ABG PO2 (T) 59.1 mmHg (83-108); ALLEN'S TEST Positive; FCOHb 1.7 % (0.5-1.5); FLOW 2 L/min; FMetHb 0.1 % (0.3-1.12); FO2Hb 90.7 % (94-100); PATIENT TEMPERATURE 36.7; TOTAL HEMOGLOBIN 15.6 G/dl (14.0-17.9)
[2019-03-13] MEDS ORDERED: VANCOMYCIN LEVEL IV ONE (15:30)
--- NOTE | 2019-03-13 16:21 | NUR ---
PAGER ID: [phone] MESSAGE: Cong [id number]. Patient's vanco trough came back critically high at 22.3. Will wait for pharmacy to adjust dose. Lisa [phone]
--- NOTE | 2019-03-13 16:24 | NUR ---
Called critical result to [facility], no new orders obtained. Will wait for pharmacy to adjust dose.
--- NOTE | 2019-03-13 18:30 | NUR ---
Patient in room PCU 3029U. I have received report from OLIVIA Gonzalez and had the opportunity to ask questions and assume patient care. Boosted pt, took BP . Pt is resting comfortably with no sign of distress. Will continue to monitor
--- NOTE | 2019-03-13 18:33 | NUR ---
Problems reprioritized. Patient report given, questions answered & plan of care reviewed with Nam BAKER. Patient stable at transfer of care.
--- NOTE | 2019-03-13 18:49 | NUR ---
Boosted pt and took BP again. BP is 160/81. Will continue to monitor Addendum: 03/13/19 at 1850 by Nam Koroma RN Amended: Links added.
[2019-03-13] MEDS: sennosides/docusate sodium tablet PO SCH (20:07)
[2019-03-13] MEDS: insulin glargine (Lantus) pen - multi-dose SQ SCH (21:00)
[2019-03-13] MEDS: hydrALAZINE 20mg/ml inj. IV PRN (22:58)
[2019-03-14] VITALS (8 sets, daily range): BP systolic 126–191; BP diastolic 58–93
[2019-03-14] MEDS: ipratropium/albuterol 3ml nebule NEB SCH ×4 (03:07→20:11)
[2019-03-14 04:35] LABS: BASOPHILS % (AUTO) 0.2 % (0-1); EOSINOPHILS # (AUTO) 0.1 X10'3 (0-0.9); EOSINOPHILS % (AUTO) 0.5 % (0-6); HEMATOCRIT 43.4 % (42.0-52.0); HEMOGLOBIN 14.3 g/dl (14.0-17.9); MEAN CORPUSCULAR HEMOGLOBIN 31.3 PG (27.0-31.0); MEAN CORPUSCULAR HGB CONC 32.9 g/dL (33.0-36.5); MEAN CORPUSCULAR VOLUME 95.3 FL (78-98); MEAN PLATELET VOLUME 8.4 FL (7.4-10.4); MONOCYTES % (AUTO) 7.8 % (2-12); NEUTROPHILS # (AUTO) 10.3 X10'3 (1.8-7.7); NEUTROPHILS % (AUTO) 83.5 % (42-75); PLATELET COUNT 131 X10'3 (140-440); RED BLOOD COUNT 4.56 X10'6 (4.70-6.10); RED CELL DISTRIBUTION WIDTH 14.4 % (11.5-14.5); WHITE BLOOD COUNT 12.4 X10'3 (4.5-11.0)
[2019-03-14 04:39] LABS: ALANINE AMINOTRANSFERASE 42 U/L (12-78); ALBUMIN/GLOBULIN RATIO 0.5 (1.1-1.5); ALKALINE PHOSPHATASE 57 IU/L (46-116); ANION GAP 9 (8-16); ASPARTATE AMINO TRANSFERASE 28 U/L (10-37); BILIRUBIN,TOTAL 0.7 MG/DL (0.1-1.0); BLOOD UREA NITROGEN 18 MG/DL (7-18); BUN/CREATININE RATIO 23.1 (5.4-32.0); CALCIUM 8.1 MG/DL (8.5-10.1); CHLORIDE 107 MMOL/L (99-107); CREATININE 0.78 MG/DL (0.60-1.10); GLUCOSE 103 MG/DL (70-104); MAGNESIUM 1.6 MG/DL (1.5-2.4); PHOSPHORUS 1.7 MG/DL (2.3-4.5); POTASSIUM 3.2 MMOL/L (3.5-5.1); SODIUM 147 MMOL/L (135-145); TOTAL CARBON DIOXIDE 31.3 MMOL/L (24-32); TOTAL PROTEIN 6.1 G/DL (6.4-8.2); eGFR > 90 ML/MIN
[2019-03-14] MEDS ORDERED: vancomycin/NS 1 GM ADD-VANTAGE 250 ML IV SCH (05:00)
[2019-03-14] MEDS: potassium Cl 20 mEq SR tablet PO PRN ×3 (05:07→15:27)
--- NOTE | 2019-03-14 06:20 | NUR ---
Problems reprioritized. Patient report given, questions answered & plan of care reviewed with OLIVIA Vicente. Pt stable at shift change.
--- NOTE | 2019-03-14 06:26 | NUR ---
Patient in room PCU 3023. I have received report from Nam BAKER and had the opportunity to ask questions and assume patient care.
[2019-03-14] MEDS: hydrALAZINE 20mg/ml inj. IV PRN (06:57)
[2019-03-14] MEDS: aztreonam inj. 2,000 MG in normal saline 100ml IV soln 100 ML IV SCH (07:01)
[2019-03-14] MEDS: atorvastatin 10mg tablet PO SCH (07:02)
[2019-03-14] MEDS: levoTHYROXINE 112mcg tablet PO SCH (07:02)
[2019-03-14] MEDS: allopurinol 100mg tablet PO SCH (07:02)
[2019-03-14] MEDS: losartan 50mg tablet PO SCH (07:02)
[2019-03-14] MEDS: lactobacillus rhamnosus 10,000 MMU CELLS/CAPSULE PO SCH ×2 (07:03→21:18)
[2019-03-14] MEDS: vitamin D (cholecalciferol) 1,000 unit tablet OGT SCH (07:03)
[2019-03-14] MEDS: tamsulosin 0.4mg capsule PO SCH (07:03)
[2019-03-14] MEDS: venlafaxine 37.5mg tablet PO SCH ×2 (07:03→21:18)
[2019-03-14] MEDS: aspirin 81mg tab.chew PO SCH (07:04)
[2019-03-14] MEDS: docusate sod 100mg capsule PO SCH (07:04)
[2019-03-14] MEDS: heparin, porcine 5000 units/ml vial SQ SCH ×2 (07:05→21:19)
--- NOTE | 2019-03-14 18:10 | NUR ---
Patient in room PCU 3023. I have received report from Jules BAKER and had the opportunity to ask questions and assume patient care.
--- NOTE | 2019-03-14 18:10 | NUR ---
Problems reprioritized. Patient report given, questions answered & plan of care reviewed with Hetal BAKER.
[2019-03-14] MEDS: insulin glargine (Lantus) pen - multi-dose SQ SCH (21:00)
[2019-03-14] MEDS: sennosides/docusate sodium tablet PO SCH (21:18)
[2019-03-15 03:00] VITALS: BP 154/86
[2019-03-15] MEDS: ipratropium/albuterol 3ml nebule NEB SCH ×3 (03:33→14:05)
[2019-03-15 06:00] VITALS: BP 161/86
--- NOTE | 2019-03-15 06:26 | NUR ---
Problems reprioritized. Patient report given, questions answered & plan of care reviewed with Bonilla rn.
[2019-03-15 06:30] LABS: BASOPHILS # (AUTO) 0.1 X10'3 (0-0.2); BASOPHILS % (AUTO) 0.5 % (0-1); EOSINOPHILS # (AUTO) 0.1 X10'3 (0-0.9); EOSINOPHILS % (AUTO) 0.8 % (0-6); HEMATOCRIT 41.8 % (42.0-52.0); HEMOGLOBIN 13.7 g/dl (14.0-17.9); LYMPHOCYTES % (AUTO) 8.6 % (21-51); MEAN CORPUSCULAR HEMOGLOBIN 31.1 PG (27.0-31.0); MEAN CORPUSCULAR HGB CONC 32.8 g/dL (33.0-36.5); MEAN CORPUSCULAR VOLUME 94.8 FL (78-98); MONOCYTES # (AUTO) 0.9 X10'3 (0-0.9); MONOCYTES % (AUTO) 7.3 % (2-12); NEUTROPHILS % (AUTO) 82.8 % (42-75); PLATELET COUNT 126 X10'3 (140-440); RED BLOOD COUNT 4.41 X10'6 (4.70-6.10); RED CELL DISTRIBUTION WIDTH 14.5 % (11.5-14.5)
--- NOTE | 2019-03-15 06:56 | NUR ---
Patient in room PCU 3023. I have received report from OLIVIA HOGAN and had the opportunity to ask questions and assume patient care.
[2019-03-15 06:57] LABS: ALANINE AMINOTRANSFERASE 40 U/L (12-78); ALBUMIN/GLOBULIN RATIO 0.5 (1.1-1.5); ALKALINE PHOSPHATASE 51 IU/L (46-116); ANION GAP 10 (8-16); ASPARTATE AMINO TRANSFERASE 28 U/L (10-37); BILIRUBIN,TOTAL 0.8 MG/DL (0.1-1.0); BLOOD UREA NITROGEN 15 MG/DL (7-18); BUN/CREATININE RATIO 18.5 (5.4-32.0); CALCIUM 7.8 MG/DL (8.5-10.1); CHLORIDE 107 MMOL/L (99-107); CREATININE 0.81 MG/DL (0.60-1.10); GLUCOSE 102 MG/DL (70-104); MAGNESIUM 1.5 MG/DL (1.5-2.4); PHOSPHORUS 1.9 MG/DL (2.3-4.5); POTASSIUM 3.4 MMOL/L (3.5-5.1); SODIUM 148 MMOL/L (135-145); TOTAL CARBON DIOXIDE 30.8 MMOL/L (24-32); eGFR > 90 ML/MIN
[2019-03-15] MEDS: atorvastatin 10mg tablet PO SCH (08:41)
[2019-03-15] MEDS: allopurinol 100mg tablet PO SCH (08:41)
[2019-03-15] MEDS: levoTHYROXINE 112mcg tablet PO SCH (08:41)
[2019-03-15] MEDS: losartan 50mg tablet PO SCH (08:41)
[2019-03-15] MEDS: potassium Cl 20 mEq SR tablet PO PRN ×2 (08:42→12:50)
[2019-03-15] MEDS: docusate sod 100mg capsule PO SCH (08:42)
[2019-03-15] MEDS: vitamin D (cholecalciferol) 1,000 unit tablet OGT SCH (08:42)
[2019-03-15] MEDS: lactobacillus rhamnosus 10,000 MMU CELLS/CAPSULE PO SCH (08:42)
[2019-03-15] MEDS: venlafaxine 37.5mg tablet PO SCH (08:42)
[2019-03-15] MEDS: aspirin 81mg tab.chew PO SCH (08:42)
[2019-03-15] MEDS: tamsulosin 0.4mg capsule PO SCH (08:44)
[2019-03-15 11:00] VITALS: BP 183/88
[2019-03-15] MEDS: hydrALAZINE 20mg/ml inj. IV PRN (11:18)
[2019-03-15 11:50] VITALS: BP 169/77
--- NOTE | 2019-03-15 13:07 | NUR ---
Reassessment: Acute respiratory failure improving per MD notes. Pt continues on pureed food with thin liquids and documented with mostly 0% PO intake not meeting nutrient needs. Unable to obtain food preferences as pt is A/O x 1 and confused. Recommend Ensure Enlive TID to provide additional kcal/protein and optimize PO intake, MD notified. ONS to be sent pending MD verification in [place]. Pt would likely benefit from appetite stimulant per MD approval if poor PO intake continues. Pt with low Jd of 12, per [facility] notes pt with full thickness wound to groin. LBM /. Will continue to follow. Rec: 1. Pureed diet with thin liquids per WORKERS COMPENSATION CONSULTANT recs 2. Send ensure puddings with meals; Ensure Enlive TID pending MD verification 3. Encourage PO intake; might benefit from appetite stimulant with MD approval 3. bowel care as needed 4. weight per rx Addendum: 03/15/19 at [address] Amended: Links added.
--- NOTE | 2019-03-15 14:14 | NUR ---
PER DR. BLOOM: LEAVE [facility] IN FOR TRANSFER TO [place].
[2019-03-15 15:00] VITALS: BP 164/92
[2019-03-15] MEDS ORDERED: VANCOMYCIN LEVEL IV ONE (16:30)
[2019-03-15] MEDS ORDERED: lactose-reduced food (Ensure Enlive) - 237ml bottle PO SCH (18:00)
--- NOTE | 2019-03-15 18:27 | NUR ---
FORMING MACHINE OPERATORsocial media editor: I have reviewed and agree with all interventions, assessments performed and documented by OLIVIA SANCHEZ.
== END 2019-03-15 16:14 | DRG 870 ==
LOC: ER 02:10 → ICU 2S 11:34 → CMPBEDREQ 19:43 → PCU 3S 03-12 14:05
PROVIDERS: ADMIT Internal Medicine Critical Care Medicine; ATTEND Family Medicine
PROC: 5A1955Z Respiratory Ventilation, Greater than 96 Consecutive Hours (ICD-10-PCS; principal; 2019-03-01)
PROC: 0BH17EZ Insertion of Endotracheal Airway into Trachea, Via Natural or Artificial Opening (ICD-10-PCS; 2019-03-01)
PROC: 5A09357 Assistance with Respiratory Ventilation, Less than 24 Consecutive Hours, Continuous Positive Airway Pressure (ICD-10-PCS; 2019-03-01)
PROC: BW241ZZ Computerized Tomography (CT Scan) of Chest and Abdomen using Low Osmolar Contrast (ICD-10-PCS; 2019-03-01)
PROC: 0B978ZZ Drainage of Left Main Bronchus, Via Natural or Artificial Opening Endoscopic (ICD-10-PCS; 2019-03-06)
PROC: 0B938ZZ Drainage of Right Main Bronchus, Via Natural or Artificial Opening Endoscopic (ICD-10-PCS; 2019-03-06)
DX: A41.59 Other Gram-negative sepsis (principal); J96.21 Acute and chronic respiratory failure with hypoxia; G93.41 Metabolic encephalopathy; J96.22 Acute and chronic respiratory failure with hypercapnia; J18.9 Pneumonia, unspecified organism; N39.0 Urinary tract infection, site not specified; Z68.43 Body mass index [BMI] 50.0-59.9, adult; J44.0 Chronic obstructive pulmonary disease with (acute) lower respiratory infection; J98.11 Atelectasis; N17.9 Acute kidney failure, unspecified; J44.9 Chronic obstructive pulmonary disease, unspecified; B96.1 Klebsiella pneumoniae [K. pneumoniae] as the cause of diseases classified elsewhere; E11.9 Type 2 diabetes mellitus without complications; E66.01 Morbid (severe) obesity due to excess calories; E78.5 Hyperlipidemia, unspecified; I50.9 Heart failure, unspecified; N40.0 Benign prostatic hyperplasia without lower urinary tract symptoms; T17.990A Other foreign object in respiratory tract, part unspecified in causing asphyxiation, initial encounter; W18.39XA Other fall on same level, initial encounter; X58.XXXA Exposure to other specified factors, initial encounter; Y93.89 Activity, other specified; Y92.89 Other specified places as the place of occurrence of the external cause; Y99.8 Other external cause status; Z88.1 Allergy status to other antibiotic agents; Z88.8 Allergy status to other drugs, medicaments and biological substances; Z88.3 Allergy status to other anti-infective agents
CPT/HCPCS: 31500; 31645; 36415; 36569; 36600; 70450; 71045; 71275; 74018; 76775; 76937; 80053; 80202; 80305; 81001; 82570; 82803; 82948; 83036; 83605; 83735; 83880; 84100; 84134; 84145; 84300; 84443; 84484; 85018; 85025; 85610; 85730; 87040; 87070; 87077; 87081; 87088; 87186; 87207; 92508; 92616; 93005; 93306; 94002; 94003; 94640; 94667; 94668; 94760; 96365; 96372; 96375; 97110; 97162; 97530; 99291; 99292; G0378; J0360; J1644; J1650; J1815; J1956; J2060; J2212; J2250; J2405; J2765; J2930; J3010; J3370; J3490; J7060; J7611; J7626